=== PATIENT | female | born 1980 | race Caucasian/White ===

== ENCOUNTER 2016-08-05 07:09 | Emergency (ER) | payer OTHER ==
[~2016-08-05] VITALS: Ht 152.4 cm; Wt 50.0 kg
[~2016-08-05 07:09] MED LIST: ALBU1AER INH; ALBU6.7H INH; BUPR100CR PO; CLIN150 PO; GABA300 PO; IBUP800T23 PO; QUET100 PO
[2016-08-05 07:10] VITALS: BP 132/72; PULSE 95; RESP 18; O2SAT 98
[2016-08-05] MEDS ORDERED: methylPREDNISolone SOD SUCC 125 MG/2 ML VIAL IVP ONE (07:15)
[2016-08-05] MEDS ORDERED: SODIUM CHLORIDE 0.9% FLUSH 10 ML FLUSH IVF PRN (07:15)
[2016-08-05 07:16] VITALS: O2SAT 100
--- NOTE | 2016-08-05 07:33 | PD ---
HPI Chief Complaint: Respiratory Distress Time Seen by Provider: 07:14 Travel History International Travel<30 days: No Contact w/Intl Traveler<30days: No Traveled to known affect area: No History of Present Illness HPI 36-year-old female with history of asthma, presents to the ER today with worsening and shortness of breath and wheezing this morning. She states she has been having intermittent symptoms for about a month now especially because her seasonal allergies are acting up. She does not have anymore inhaler. She denies any fevers or any other issues. Modifying Factors: Worse with seasonal allergies Associated Signs & Symptoms: Shortness of breath, wheezing Risk Factors: Asthma PFSH Past Medical History Arthritis: No Asthma: Yes Autoimmune Disease: No Blood Disorders: No Anxiety: Yes Depression: Yes Heart Rhythm Problems: No High Cholesterol: No Chemotherapy: No Chest Pain: No Congestive Heart Failure: No COPD: No Cerebrovascular Accident: No Diminished Hearing: No Endocrine: Yes (PATIENT STATES HYPER THYROID WHILE 11 YRS AGO) Gastrointestinal Disorders: No GERD: No Glaucoma: No Genitourinary: Yes Hepatitis: No Hiatal Hernia: No Hypertension: No Immune Disorder: No Kidney Stones: No Musculoskeletal: No Neurologic: No Psychiatric: Yes (depression) Reproductive: No Respiratory: Yes Immunizations Current: Yes Myocardial Infarction: No Radiation Therapy: No Renal Failure: No Sickle Cell Disease: No Sleep Apnea: No Thyroid Disease: Yes Ulcer: No ?: Not Menopausal: No : 3 Para: 2 Miscarriage: 1 Tubal Ligation: Yes Past Surgical History Abdominal Surgery: No AICD: No Cardiac Surgery: No Section: Yes (x 2) Ear Surgery: No Endocrine Surgery: No Eye Surgery: No Genitourinary Surgery: Yes (URETHRA STRETCHED CHILDHOOD) Gynecologic Surgery: Yes (C SECTION, TUBAL) Joint Replacement: No Neurologic Surgery: No Oral Surgery: No Pacemaker: No Thoracic Surgery: No Other Surgery: Yes Social History Alcohol Use: Yes (socially) Tobacco Use: Yes (1PDD) Substance Use: No Allergies-Medications (Allergen,Severity, Reaction): Coded Allergies: Sulfa (Verified Allergy, Severe, Rash, 08/05/16) Reported Meds & Prescriptions Reported Meds & Active Scripts Active Proair Hfa (Albuterol Sulfate) 8.5 Gm Aero 2 Puff INH Q4-6H PRN * SHAKE WELL BEFORE USE * Ibuprofen 800 Mg Tab 800 Mg PO Q6H PRN Cleocin (Clindamycin HCl) 150 Mg Cap 450 Mg PO Q8HR 10 Days Quetiapine Fumarate 100 Mg Tab 100 Mg PO HS Proventil Hfa (Albuterol Sulfate) 6.7 Gm Aero 2 Puff INH Q4H PRN * SHAKE WELL BEFORE USE * Reported Neurontin (Gabapentin) 300 Mg Cap 300 Mg PO BID Wellbutrin Sr (Bupropion HCl) 100 Mg Tab 100 Mg PO Q12 Review of Systems Except as stated in HPI: all other systems reviewed are Neg Physical Exam Narrative GENERAL: Young white female patient currently and moderate respiratory distress. Awake and oriented 3. Able to speak in full sentences. SKIN: Warm and dry. HEAD: Atraumatic. Normocephalic. EYES: Pupils equal and round. No scleral icterus. No injection or drainage. ENT: No nasal bleeding or discharge. Mucous membranes pink and moist. NECK: Trachea midline. No JVD. CARDIOVASCULAR: Regular rate and rhythm. No murmur appreciated. RESPIRATORY: Mild accessory muscle use. Bilateral wheezing on evaluation. Breath sounds equal bilaterally. GASTROINTESTINAL: Abdomen soft, non-tender, nondistended. Hepatic and splenic margins not palpable. MUSCULOSKELETAL: No obvious deformities. No clubbing. No cyanosis. No edema. NEUROLOGICAL: Awake and alert. No obvious cranial nerve deficits. Motor grossly within normal limits. Normal speech. PSYCHIATRIC: Appropriate mood and affect; insight and judgment normal. Data Data Last Documented VS Vital Signs Date Time Temp Pulse Resp B/P Pulse Ox O2 Delivery O2 Flow Rate FiO2 08/05/16 08:47 93 20 121/61 97 Nasal Cannula 2 Orders Complete Blood Count With Diff (08/05/16 07:14) Comprehensive Metabolic Panel (08/05/16 07:14) Iv Access Insert/Monitor (08/05/16 07:14) Ecg Monitoring (08/05/16 07:14) Oximetry (08/05/16 07:14) Oxygen Administration (08/05/16 07:14) Sodium Chloride 0.9% Flush (Ns Flush) (08/05/16 07:15) Methylprednisolone So Succ Inj (Solumedr (08/05/16 07:15) Albuterol-Ipratropium Neb (Duoneb Neb) (08/05/16 07:15) Albuterol-Ipratropium Neb (Duoneb Neb) (08/05/16 08:30) Labs Laboratory Tests Test 08/05/16 07:30 White Blood Count 8.8 TH/MM3 Red Blood Count 4.98 MIL/MM3 Hemoglobin 15.5 GM/DL Hematocrit 46.1 % Mean Corpuscular Volume 92.5 FL Mean Corpuscular Hemoglobin 31.1 PG Mean Corpuscular Hemoglobin 33.6 % Concent Red Cell Distribution Width 13.1 % Platelet Count 372 TH/MM3 Mean Platelet Volume 9.1 FL Neutrophils (%) (Auto) 55.8 % Lymphocytes (%) (Auto) 28.9 % Monocytes (%) (Auto) 10.2 % Eosinophils (%) (Auto) 4.1 % Basophils (%) (Auto) 1.0 % Neutrophils # (Auto) 4.9 TH/MM3 Lymphocytes # (Auto) 2.5 TH/MM3 Monocytes # (Auto) 0.9 TH/MM3 Eosinophils # (Auto) 0.4 TH/MM3 Basophils # (Auto) 0.1 TH/MM3 CBC Comment DIFF FINAL Differential Comment Sodium Level 138 MEQ/L Potassium Level 4.8 MEQ/L Chloride Level 108 MEQ/L Carbon Dioxide Level 25.1 MEQ/L Anion Gap 5 MEQ/L Blood Urea Nitrogen 4 MG/DL Creatinine 0.58 MG/DL Estimat Glomerular Filtration 118 ML/MIN Rate Random Glucose 89 MG/DL Calcium Level 8.3 MG/DL Total Bilirubin 0.3 MG/DL Aspartate Amino Transf 27 U/L (AST/SGOT) Alanine Aminotransferase 18 U/L (ALT/SGPT) Alkaline Phosphatase 72 U/L Total Protein 7.0 GM/DL Albumin 3.3 GM/DL MDM Medical Decision Making Medical Screen Exam Complete: Yes Emergency Medical Condition: Yes Medical Record Reviewed: Yes Interpretation(s) Laboratory Tests Test 08/05/16 07:30 Hemoglobin 15.5 GM/DL (11.6-15.3) Hematocrit 46.1 % (35.0-46.0) Monocytes (%) (Auto) 10.2 % (0.0-8.0) Eosinophils (%) (Auto) 4.1 % (0.0-4.0) Chloride Level 108 MEQ/L (98-107) Blood Urea Nitrogen 4 MG/DL (7-18) Calcium Level 8.3 MG/DL (8.5-10.1) Albumin 3.3 GM/DL (3.4-5.0) Differential Diagnosis Shortness of breathasthma exacerbation versus pneumonia versus other acute pulmonary processes Narrative Course Patient was given Solu-Medrol and several nebulizers in the ER. On reevaluation at 9 AM, she is feeling much improved. My plan would be to release her with follow-up to primary care physician. Return for any worsening in symptoms as necessary. The plan has been discussed with her and she states understanding. Diagnosis Primary Impression: Asthma exacerbation Med/Other Pt SpecificInfo: Prescription(s) given Scripts Prednisone 50 Mg Tab50 Mg PO DAILY #5 TAB Ref 0 Prov:Mert Marrero MD 08/05/16 Albuterol 6.7 GM Inh (Proventil Hfa 6.7 GM Inh)90 Mcg/Act Aer2 Puff INH Q4-6H PRN (SHORTNESS OF BREATH) #1 INHALER Ref 0 Prov:Mert Marrero MD 08/05/16 Disposition: 01 DISCHARGE HOME Condition: Stable Mert Marrero MD Aug 05, 2016 07:33
[2016-08-05] MEDS: RESP: ALBUTEROL 2.5 MG/IPRATROPIUM 0.5 MG NEB (SCH) INH ×2 (07:58→08:36)
[2016-08-05 08:24] LABS: AUTOMATED NEUTROPHIL # 4.9 TH/MM3 (1.8-7.7); BASOPHIL # 0.1 TH/MM3 (0-0.2); EOSINOPHIL # 0.4 TH/MM3 (0-0.4); EOSINOPHIL % 4.1 % (0.0-4.0); HEMATOCRIT 46.1 % (35.0-46.0); HEMO FLAGS DIFF FINAL; LYMPH % 28.9 % (9.0-44.0); LYMPHOCYTE # 2.5 TH/MM3 (1.0-4.8); MEAN CELL VOLUME 92.5 FL (80.0-100.0); MEAN CORPUSCULAR HEMOGLOBIN 31.1 PG (27.0-34.0); MEAN CORPUSCULAR HGB CONC 33.6 % (32.0-36.0); MONO % 10.2 % (0.0-8.0); NEUT % 55.8 % (16.0-70.0); PLATELET COUNT 372 TH/MM3 (150-450); RED BLOOD COUNT 4.98 MIL/MM3 (4.00-5.30); RED CELL DISTRIBUTION WIDTH 13.1 % (11.6-17.2); WHITE BLOOD COUNT 8.8 TH/MM3 (4.0-11.0)
[2016-08-05 08:47] VITALS: BP 121/61; PULSE 93; RESP 20; O2SAT 97
[2016-08-05 08:58] LABS: ALKALINE PHOSPHATASE 72 U/L (45-117); ALT (GPT) 18 U/L (10-53); ANION GAP 5 MEQ/L (5-15); AST (GOT) 27 U/L (15-37); BICARBONATE 25.1 MEQ/L (21.0-32.0); BLOOD UREA NITROGEN 4 MG/DL (7-18); CHLORIDE 108 MEQ/L (98-107); GLOMERULAR FILTRATION RATE 118 ML/MIN (>89); SODIUM (NA) 138 MEQ/L (136-145); TOTAL BILIRUBIN ADULT 0.3 MG/DL (0.2-1.0)
[2016-08-05 09:02] LABS: POTASSIUM 4.8 MEQ/L (3.5-5.1)
[2016-08-05] MEDS ORDERED: ALBU6.7H INH (09:18)
[2016-08-05] MEDS ORDERED: PRED50 PO (09:18)
== END 2016-08-05 10:03 | disposition home or self-care (01) ==
LOC: NEPC 07:09
DX: J45.901 Unspecified asthma with (acute) exacerbation (principal); F17.210 Nicotine dependence, cigarettes, uncomplicated
CPT/HCPCS: 80053; 85025; 94640; 94664; 96374; 99284; J2930

== ENCOUNTER 2016-11-22 06:54 | Emergency (ER) | payer OTHER ==
[~2016-11-22 06:54] MED LIST changes: -ALBU1AER INH; -BUPR100CR PO; -CLIN150 PO; -GABA300 PO; -IBUP800T23 PO; +PRED50 PO; -QUET100 PO
[2016-11-22 06:58] VITALS: BP 109/61; PULSE 110; RESP 15; TEMP 97.9; O2SAT 93
[2016-11-22] MEDS ORDERED: SERO100T PO (07:21)
[2016-11-22] MEDS ORDERED: BUPR100CR PO (07:21)
--- NOTE | 2016-11-22 07:25 | PD ---
HPI Chief Complaint: Flank/Kidney Pain Time Seen by Provider: 07:16 Travel History International Travel<30 days: No Contact w/Intl Traveler<30days: No Traveled to known affect area: No History of Present Illness HPI The patient was seen and examined in the presence of the nurse. She complains of pain in the right low back. Duration 20 hours. Severity is moderate. No injury or fever or urinary complaints. There is no sciatic radiation. No muscle weakness or sensory loss. No alleviating factors. She has had this multiple times in the past without evaluation PFSH Past Medical History Arthritis: No Asthma: Yes Autoimmune Disease: No Blood Disorders: No Anxiety: Yes Depression: Yes Heart Rhythm Problems: No High Cholesterol: No Chemotherapy: No Chest Pain: No Congestive Heart Failure: No COPD: No Cerebrovascular Accident: No Diminished Hearing: No Endocrine: Yes (PATIENT STATES HYPER THYROID WHILE ) Gastrointestinal Disorders: No GERD: No Glaucoma: No Genitourinary: Yes Hepatitis: No Hiatal Hernia: No Hypertension: No Immune Disorder: No Kidney Stones: No Musculoskeletal: No Neurologic: No Psychiatric: Yes (depression) Reproductive: No Respiratory: Yes Immunizations Current: Yes Myocardial Infarction: No Radiation Therapy: No Renal Failure: No Sickle Cell Disease: No Sleep Apnea: No Thyroid Disease: Yes Ulcer: No Tetanus Vaccination: > 5 Years Influenza Vaccination: No ?: Not LMP: 11/09/16 Menopausal: No : 3 Para: 2 Miscarriage: 1 : 0 Tubal Ligation: Yes Past Surgical History Abdominal Surgery: No AICD: No Cardiac Surgery: No Section: Yes (x 2) Ear Surgery: No Endocrine Surgery: No Eye Surgery: No Genitourinary Surgery: Yes (URETHRA STRETCHED CHILDHOOD) Gynecologic Surgery: Yes (C SECTION, TUBAL) Joint Replacement: No Neurologic Surgery: No Oral Surgery: No Pacemaker: No Thoracic Surgery: No Other Surgery: Yes Social History Alcohol Use: Yes (socially) Tobacco Use: Yes (1PDD) Substance Use: No Allergies-Medications (Allergen,Severity, Reaction): Coded Allergies: Sulfa (Verified Allergy, Severe, Rash, 11/22/16) Reported Meds & Prescriptions Reported Meds & Active Scripts Active Proventil Hfa 6.7 GM Inh (Albuterol Sulfate) 90 Mcg/Act Aer 2 Puff INH Q4-6H PRN Reported Wellbutrin SR 12 HR (Bupropion HCl) 100 Mg Tab 100 Mg PO Q12HR Seroquel (Quetiapine Fumarate) 100 Mg Tab 100 Mg PO HS Review of Systems General / Constitutional: No: Fever Eyes: No: Visual changes HENT: No: Headaches Cardiovascular: No: Chest Pain or Discomfort Respiratory: No: Shortness of Breath Gastrointestinal: No: Abdominal Pain Genitourinary: Positive: Flank Pain, No: Dysuria Musculoskeletal: Positive: Pain Skin: No Rash Neurologic: No: Weakness Psychiatric: No: Depression Endocrine: No: Polydipsia Hematologic/Lymphatic: No: Easy Bruising Physical Exam Narrative GENERAL: Well-nourished, well-developed patient in no apparent distress. SKIN: Focused skin assessment reveals no rash and nodules. Skin is Warm and dry. HEAD: Atraumatic. Normocephalic. EYES: Pupils equal and round. No scleral icterus. No injection or drainage. ENT: No nasal bleeding or discharge. Mucous membranes pink and moist. NECK: Trachea midline. No JVD. CARDIOVASCULAR: Regular rate and rhythm. No murmur appreciated. RESPIRATORY: No accessory muscle use. Clear to auscultation. Breath sounds equal bilaterally. GASTROINTESTINAL: Abdomen soft, non-tender, nondistended. Hepatic and splenic margins not palpable. MUSCULOSKELETAL: No obvious deformities. No clubbing. No cyanosis. No edema. No midline tenderness to the back. There is right lumbar area tenderness without objective finding NEUROLOGICAL: Awake and alert. No obvious cranial nerve deficits. Motor grossly within normal limits. Normal speech. PSYCHIATRIC: Appropriate mood and affect; insight and judgment normal. Data Data Last Documented VS Vital Signs Date Time Temp Pulse Resp B/P Pulse Ox O2 Delivery O2 Flow Rate FiO2 11/22/16 09:04 97.7 77 18 101/50 97 Room Air Orders Urinalysis - C+S If Indicated (11/22/16 07:22) Urine Culture (11/22/16 07:25) Labs Laboratory Tests Test 11/22/16 07:25 Urine Color YELLOW Urine Turbidity CLOUDY Urine pH 6.5 Urine Specific [place] 1.016 Urine Protein 30 mg/dL Urine Glucose (UA) NEG mg/dL Urine Ketones NEG mg/dL Urine Occult Blood LARGE Urine Nitrite POS Urine Bilirubin NEG Urine Urobilinogen LESS THAN 2.0 MG/DL Urine Leukocyte Esterase LARGE Urine RBC 128 /hpf Urine WBC 73 /hpf Urine WBC Clumps MOD Urine Squamous Epithelial 12 /hpf Cells Urine Bacteria FEW /hpf Urine Mucus FEW /lpf Microscopic Urinalysis Comment CULTURE INDICATED MDM Medical Decision Making Medical Screen Exam Complete: Yes Emergency Medical Condition: Yes Medical Record Reviewed: Yes Differential Diagnosis Lumbar strain, sciatica, pyelonephritis Narrative Course I have reviewed the patient's electronic medical record. Patient's a frequent visitor for asthma exacerbations Urinalysis is consistent with infection with pyuria and hematuria and clumps of white cells Cipro prescribed Diagnosis Primary Impression: Pyelonephritis Additional Instructions: The patient was advised to follow up with their physician and return if they worsen. Med/Other Pt SpecificInfo: Prescription(s) given Scripts Ciprofloxacin (Cipro)500 Mg Opl286 Mg PO BID #10 TAB Ref 0 Prov:Roger Lomeli MD 11/22/16 Disposition: 01 DISCHARGE HOME Condition: Stable Roger Lomeli MD Nov 22, 2016 07:25
[2016-11-22 08:11] LABS: BACTERIA, URINE FEW /hpf; BLOOD, URINE LARGE (NEG); COMMENT (UR) CULTURE INDICATED; CULTURE IF INDICATED CULTURE INDICATED; GLUCOSE,URINE NEG (NEG); KETONE, URINE NEG (NEG); MUCUS URINE FEW /lpf (OCC); PH, URINE 6.5 (5.0-8.5); SQUAMOUS EPITHELIAL CELL URINE 12 /hpf (0-5); URINE COLOR YELLOW (YELLW/STRAW)
[2016-11-22 08:13] LABS: NITRITE,URINE POS (NEG)
[2016-11-22 09:04] VITALS: BP 101/50; PULSE 77; RESP 18; TEMP 97.7; O2SAT 97
[2016-11-22] MEDS ORDERED: CIPR-9 PO (09:49)
== END 2016-11-22 10:10 | disposition home or self-care (01) ==
LOC: NEPC 06:54
DX: N12 Tubulo-interstitial nephritis, not specified as acute or chronic (principal); J45.909 Unspecified asthma, uncomplicated; F41.9 Anxiety disorder, unspecified; F32.9 Major depressive disorder, single episode, unspecified; F17.200 Nicotine dependence, unspecified, uncomplicated; Z79.899 Other long term (current) drug therapy; Z88.2 Allergy status to sulfonamides
CPT/HCPCS: 81001; 87086; 99283

== ENCOUNTER 2016-12-11 14:39 | Inpatient (IN) | payer OTHER ==
[~2016-12-11] VITALS: Ht 152.4 cm; Wt 44.4 kg
[~2016-12-11 14:39] MED LIST changes: +BUPR100CR PO; +CIPR-9 PO; -PRED50 PO; +SERO100T PO
[2016-12-11 14:40] VITALS: BP 103/67; PULSE 98; RESP 22; TEMP 100.9; O2SAT 100
--- NOTE | 2016-12-11 15:29 | PD ---
HPI Chief Complaint: Flank/Kidney Pain Time Seen by Provider: 15:29 Travel History International Travel<30 days: No Contact w/Intl Traveler<30days: No Traveled to known affect area: No History of Present Illness HPI 36 YO F with PMH of asthma, depression and anxiety presents to the ED for evaluation of 2 week history of dysuria, right flank and back pain. Also complains of fevers, nausea and malaise. Endorses vaginal discharge. Denies changes in bowel habits, melena, hematochezia. She was seen in the ED last week , provided Cipro for pyelonephritis. She endorses compliance with the medication. PFSH Past Medical History Arthritis: No Asthma: Yes Autoimmune Disease: No Blood Disorders: No Anxiety: Yes Depression: Yes Heart Rhythm Problems: No High Cholesterol: No Chemotherapy: No Chest Pain: No Congestive Heart Failure: No COPD: No Cerebrovascular Accident: No Diminished Hearing: No Endocrine: Yes (PATIENT STATES HYPER THYROID WHILE ) Gastrointestinal Disorders: No GERD: No Glaucoma: No Genitourinary: Yes Hepatitis: No Hiatal Hernia: No Hypertension: No Immune Disorder: No Kidney Stones: No Musculoskeletal: No Neurologic: No Psychiatric: Yes (depression) Reproductive: No Respiratory: Yes Immunizations Current: Yes Myocardial Infarction: No Radiation Therapy: No Renal Failure: No Sickle Cell Disease: No Sleep Apnea: No Thyroid Disease: Yes Ulcer: No ?: Not Menopausal: No : 3 Para: 2 Miscarriage: 1 : 0 Tubal Ligation: Yes Past Surgical History Abdominal Surgery: No AICD: No Cardiac Surgery: No Section: Yes (x 2) Ear Surgery: No Endocrine Surgery: No Eye Surgery: No Genitourinary Surgery: Yes (URETHRA STRETCHED CHILDHOOD) Gynecologic Surgery: Yes (C SECTION, TUBAL) Joint Replacement: No Neurologic Surgery: No Oral Surgery: No Pacemaker: No Thoracic Surgery: No Other Surgery: Yes Social History Alcohol Use: Yes (socially) Tobacco Use: Yes (1PDD) Substance Use: No Allergies-Medications (Allergen,Severity, Reaction): Coded Allergies: Sulfa (Verified Allergy, Severe, Rash, 11/22/16) Reported Meds & Prescriptions Reported Meds & Active Scripts Active Cipro (Ciprofloxacin HCl) 500 Mg Tab 500 Mg PO BID Proventil Hfa 6.7 GM Inh (Albuterol Sulfate) 90 Mcg/Act Aer 2 Puff INH Q4-6H PRN Reported Wellbutrin SR 12 HR (Bupropion HCl) 100 Mg Tab 100 Mg PO Q12HR Seroquel (Quetiapine Fumarate) 100 Mg Tab 100 Mg PO HS Review of Systems Except as stated in HPI: all other systems reviewed are Neg Physical Exam Narrative GENERAL: Well-nourished, well-developed petite, ill-appearing white female in no acute distress. SKIN: Focused skin assessment warm/dry. HEAD: Normocephalic. EYES: No scleral icterus. No injection or drainage. NECK: Supple, trachea midline. No JVD or lymphadenopathy. CARDIOVASCULAR: Regular rate and rhythm without murmurs, gallops, or rubs. RESPIRATORY: Breath sounds clear and equal bilaterally. No accessory muscle use. GASTROINTESTINAL: Abdomen soft, nondistended. Tender to palpation in the suprapubic area, bilateral lower quadrants, right greater than left. Active bowel sounds. MUSCULOSKELETAL: No cyanosis, or edema. GENITOURINARY: Normal external genitalia without lesions or erythema. Vaginal vault small amount of dark blood. Cervical os was closed small amount dark blood. No cervical motion tenderness. Uterus nontender and nonenlarged. Right adnexa tender. BACK: Nontender without obvious deformity. No CVA tenderness. Data Data Last Documented VS Vital Signs Date Time Temp Pulse Resp B/P Pulse Ox O2 Delivery O2 Flow Rate FiO2 12/11/16 14:40 100.9 98 22 103/67 100 Orders Urinalysis - C+S If Indicated (12/11/16 15:02) Complete Blood Count With Diff (12/11/16 15:02) Basic Metabolic Panel (Bmp) (12/11/16 15:02) Lactic Acid (12/11/16 15:02) Blood Culture (12/11/16 15:02) Ed Urine Pregnancytest Poc (12/11/16 15:18) Iv Access Insert/Monitor (12/11/16 15:34) Ecg Monitoring (12/11/16 15:34) Oximetry (12/11/16 15:34) Ondansetron Inj (Zofran Inj) (12/11/16 15:45) Sodium Chlor 0.9% 1000 Ml Inj (Ns 1000 M (12/11/16 15:34) Morphine Inj (Morphine Inj) (12/11/16 15:45) Acetaminophen (Tylenol) (12/11/16 16:00) Gc And Chlamydia Pcr (12/11/16 15:47) Wet Prep Profile (12/11/16 15:47) Sodium Chlor 0.9% 1000 Ml Inj (Ns 1000 M (12/11/16 16:15) Ct Abd/Pel W/O Iv Contrast (12/11/16 16:12) Urine Culture (12/11/16 14:55) Ceftriaxone Inj (Rocephin Inj) (12/11/16 16:30) Admit Order (Ed Use Only) (12/11/16 16:29) Labs Laboratory Tests Test 12/11/16 12/11/16 14:55 15:00 Urine Color YELLOW Urine Turbidity HAZY Urine pH 7.0 Urine Specific [place] 1.015 Urine Protein 30 mg/dL Urine Glucose (UA) NEG mg/dL Urine Ketones NEG mg/dL Urine Occult Blood MOD Urine Nitrite NEG Urine Bilirubin NEG Urine Urobilinogen LESS THAN 2.0 MG/DL Urine Leukocyte Esterase LARGE Urine RBC /hpf Urine WBC 62 /hpf Urine Squamous Epithelial 1 /hpf Cells Urine Bacteria FEW /hpf Urine Mucus FEW /lpf Microscopic Urinalysis Comment CULTURE INDICATED White Blood Count 17.6 TH/MM3 Red Blood Count 4.29 MIL/MM3 Hemoglobin 13.2 GM/DL Hematocrit 39.4 % Mean Corpuscular Volume 91.9 FL Mean Corpuscular Hemoglobin 30.7 PG Mean Corpuscular Hemoglobin 33.4 % Concent Red Cell Distribution Width 12.9 % Platelet Count 340 TH/MM3 Mean Platelet Volume 8.9 FL Neutrophils (%) (Auto) 80.0 % Lymphocytes (%) (Auto) 9.3 % Monocytes (%) (Auto) 9.7 % Eosinophils (%) (Auto) 0.1 % Basophils (%) (Auto) 0.9 % Neutrophils # (Auto) 14.1 TH/MM3 Lymphocytes # (Auto) 1.6 TH/MM3 Monocytes # (Auto) 1.7 TH/MM3 Eosinophils # (Auto) 0.0 TH/MM3 Basophils # (Auto) 0.2 TH/MM3 CBC Comment DIFF FINAL Differential Comment Sodium Level 134 MEQ/L Potassium Level 3.3 MEQ/L Chloride Level 102 MEQ/L Carbon Dioxide Level 22.3 MEQ/L Anion Gap 10 MEQ/L Blood Urea Nitrogen 5 MG/DL Creatinine 0.61 MG/DL Estimat Glomerular Filtration 111 ML/MIN Rate Random Glucose 95 MG/DL Lactic Acid Level 2.6 mmol/L Calcium Level 9.0 MG/DL [facility] Medical Decision Making Medical Screen Exam Complete: Yes Emergency Medical Condition: Yes Differential Diagnosis Pyelonephritis versus nephroureterolithiasis versus outpatient failure versus urosepsis versus other Narrative Course 36 YO F with PMH of asthma, depression and anxiety presents to the ED for evaluation of 2 week history of dysuria, right flank and back pain. Also complains of fevers, nausea and malaise. Took a course of Cipro outpatient with no improvement in symptoms. On presentation the patient is tachycardic, febrile, ill-appearing. Positive suprapubic, right abdominal, flank and right CVA tenderness. IV was established. She was administered 2 L normal saline, 4 mg morphine and 4 mg Zofran IV. Blood cultures were obtained. Rocephin was initiated. Leukocytosis of 17.6, neutrophil predominant. Lactic acid 2.6. UA hazy, large leukocyte esterase, 62 WBCs. Urine culture pending. Noncontrast CT abdomen and pelvis pending. CT report reveals a 10 mm x 7 mm distal ureter stone with mild hydronephrosis. Consult placed with Dr. Jackson, urology, who agrees to consult on the patient. I discussed the workup with the patient as well as the plan to admit. She is agreeable. I spoke with Dr. Guzman who agrees to accept the patient to the medicine service. Please see medicine for disposition. Sepsis Criteria SIRS Criteria (2 or more): Temp > 100.9 or < 96.8, Heart rate over 90, WBC > 48372, < 4000 or > 10% bands Severe Sepsis (+one): Lactate >2 Criteria Outcome: Meets severe sepsis criteria Monie Hussein Dec 11, 2016 15:29
[2016-12-11] MEDS ORDERED: SODIUM CHLOR 0.9% 1000 ML INJ 1,000 ML IV SCH (15:34)
[2016-12-11] MEDS ORDERED: ONDANSETRON HCL 4 MG/2 ML VIAL IVP ONE (15:45)
[2016-12-11] MEDS ORDERED: MORPHINE SULFATE 4 MG/ML INJ IV PUSH ONE (15:45)
[2016-12-11 15:58] LABS: AUTOMATED NEUTROPHIL # 14.1 TH/MM3 (1.8-7.7); BASOPHIL # 0.2 TH/MM3 (0-0.2); BASOPHIL % 0.9 % (0.0-2.0); EOSINOPHIL % 0.1 % (0.0-4.0); HEMATOCRIT 39.4 % (35.0-46.0); HEMO FLAGS DIFF FINAL; LYMPH % 9.3 % (9.0-44.0); LYMPHOCYTE # 1.6 TH/MM3 (1.0-4.8); MEAN CELL VOLUME 91.9 FL (80.0-100.0); MEAN CORPUSCULAR HEMOGLOBIN 30.7 PG (27.0-34.0); MEAN CORPUSCULAR HGB CONC 33.4 % (32.0-36.0); MONO % 9.7 % (0.0-8.0); PLATELET COUNT 340 TH/MM3 (150-450); RED BLOOD COUNT 4.29 MIL/MM3 (4.00-5.30); RED CELL DISTRIBUTION WIDTH 12.9 % (11.6-17.2); WHITE BLOOD COUNT 17.6 TH/MM3 (4.0-11.0)
[2016-12-11] MEDS ORDERED: ACETAMINOPHEN 325 MG TAB PO ONE (16:00)
[2016-12-11 16:12] LABS: BACTERIA, URINE FEW /hpf; BLOOD, URINE MOD (NEG); COMMENT (UR) CULTURE INDICATED; CULTURE IF INDICATED CULTURE INDICATED; GLUCOSE,URINE NEG (NEG); KETONE, URINE NEG (NEG); MUCUS URINE FEW /lpf (OCC); NITRITE,URINE NEG (NEG); SQUAMOUS EPITHELIAL CELL URINE 1 /hpf (0-5); URINE COLOR YELLOW (YELLW/STRAW)
[2016-12-11] MEDS ORDERED: SODIUM CHLOR 0.9% 1000 ML INJ 1,000 ML IV ONE (16:15)
[2016-12-11 16:22] LABS: BICARBONATE 22.3 MEQ/L (21.0-32.0); POTASSIUM 3.3 MEQ/L (3.5-5.1)
[2016-12-11] MEDS ORDERED: cefTRIAXone INJ 1,000 MG in SODIUM CHLORIDE 0.9% INJ 100 ML IV ONE (16:30)
--- NOTE | 2016-12-11 17:07 | PD ---
Data Data Last Documented VS Vital Signs Date Time Temp Pulse Resp B/P Pulse Ox O2 Delivery O2 Flow Rate FiO2 12/11/16 14:40 100.9 98 22 103/67 100 Orders Urinalysis - C+S If Indicated (12/11/16 15:02) Complete Blood Count With Diff (12/11/16 15:02) Basic Metabolic Panel (Bmp) (12/11/16 15:02) Lactic Acid (12/11/16 15:02) Blood Culture (12/11/16 15:02) Ed Urine Pregnancytest Poc (12/11/16 15:18) Iv Access Insert/Monitor (12/11/16 15:34) Ecg Monitoring (12/11/16 15:34) Oximetry (12/11/16 15:34) Ondansetron Inj (Zofran Inj) (12/11/16 15:45) Sodium Chlor 0.9% 1000 Ml Inj (Ns 1000 M (12/11/16 15:34) Morphine Inj (Morphine Inj) (12/11/16 15:45) Acetaminophen (Tylenol) (12/11/16 16:00) Gc And Chlamydia Pcr (12/11/16 15:47) Wet Prep Profile (12/11/16 15:47) Sodium Chlor 0.9% 1000 Ml Inj (Ns 1000 M (12/11/16 16:15) Ct Abd/Pel W/O Iv Contrast (12/11/16 16:12) Urine Culture (12/11/16 14:55) Ceftriaxone Inj (Rocephin Inj) (12/11/16 16:30) Admit Order (Ed Use Only) (12/11/16 16:29) Labs Laboratory Tests Test 12/11/16 12/11/16 14:55 15:00 Urine Color YELLOW Urine Turbidity HAZY Urine pH 7.0 Urine Specific [place] 1.015 Urine Protein 30 mg/dL Urine Glucose (UA) NEG mg/dL Urine Ketones NEG mg/dL Urine Occult Blood MOD Urine Nitrite NEG Urine Bilirubin NEG Urine Urobilinogen LESS THAN 2.0 MG/DL Urine Leukocyte Esterase LARGE Urine RBC /hpf Urine WBC 62 /hpf Urine Squamous Epithelial 1 /hpf Cells Urine Bacteria FEW /hpf Urine Mucus FEW /lpf Microscopic Urinalysis Comment CULTURE INDICATED White Blood Count 17.6 TH/MM3 Red Blood Count 4.29 MIL/MM3 Hemoglobin 13.2 GM/DL Hematocrit 39.4 % Mean Corpuscular Volume 91.9 FL Mean Corpuscular Hemoglobin 30.7 PG Mean Corpuscular Hemoglobin 33.4 % Concent Red Cell Distribution Width 12.9 % Platelet Count 340 TH/MM3 Mean Platelet Volume 8.9 FL Neutrophils (%) (Auto) 80.0 % Lymphocytes (%) (Auto) 9.3 % Monocytes (%) (Auto) 9.7 % Eosinophils (%) (Auto) 0.1 % Basophils (%) (Auto) 0.9 % Neutrophils # (Auto) 14.1 TH/MM3 Lymphocytes # (Auto) 1.6 TH/MM3 Monocytes # (Auto) 1.7 TH/MM3 Eosinophils # (Auto) 0.0 TH/MM3 Basophils # (Auto) 0.2 TH/MM3 CBC Comment DIFF FINAL Differential Comment Sodium Level 134 MEQ/L Potassium Level 3.3 MEQ/L Chloride Level 102 MEQ/L Carbon Dioxide Level 22.3 MEQ/L Anion Gap 10 MEQ/L Blood Urea Nitrogen 5 MG/DL Creatinine 0.61 MG/DL Estimat Glomerular Filtration 111 ML/MIN Rate Random Glucose 95 MG/DL Lactic Acid Level 2.6 mmol/L Calcium Level 9.0 MG/DL MDM Supervised Visit with JENS: Yes Narrative Course The history, exam, and medical decision-making in the associated midlevel provider note were completed with my assistance. I reviewed and agree with the findings presented. I attest that I had a [id number] encounter with the patient on the same day, and personally performed and documented my assessment and findings in the medical record. *My assessment and Findings: This is a 36-year-old female who presents to the emergency department with signs and symptoms classic for pyelonephritis. She does have a significant amount of pain. Labs and urinalysis confirm pyelonephritis. CT will be obtained to rule out stone. She was given a dose of IV ceftriaxone. She completed a course of ciprofloxacin at home. She'll be admitted for failed outpatient therapy. Jane Garcia MD Dec 11, 2016 17:07
[2016-12-11] MEDS ORDERED: ONDANSETRON HCL 4 MG/2 ML VIAL IV PUSH PRN (17:15)
[2016-12-11] MEDS ORDERED: ACETAMINOPHEN 325 MG TAB PO PRN (17:15)
--- NOTE | 2016-12-11 17:16 | HHI.HP ---
[facility] No Primary Care Physician Admission Diagnosis pyelonephritis, sepsis Diagnoses: (1) Pyelonephritis Diagnosis: Principal (2) Severe sepsis Diagnosis: Principal Chief Complaint: flank pain Travel History International Travel<30 Days: No Contact w/Intl Traveler <30 Da: No Traveled to Known Affected Are: No Sepsis Criteria SIRS Criteria (2 or more): Heart rate over 90, WBC > 52219, < 4000 or > 10% bands Sepsis Criteria (SIRS+source): Infect source susp/known Severe Sepsis (+one): Lactate >2 Criteria Outcome: Meets severe sepsis criteria History of Present Illness patient is a 36 y/o female with history of depression who presented to ER with flank pain. she says that she started to have flank pain along with dysuria and urinary frequency about two weeks ago. she was seen in ER and was discharged home with danielle Ji. she says that she initially felt better however the symptoms started to get worse again few days ago. she reports some nausea, fever and chills. she's complaining of flank pain which is bilateral and moderate to severe in intensity. pain has some radiation to the periumbilical area. Review of Systems Constitutional: COMPLAINS OF: Fever, DENIES: Weight loss, Chills, Night Sweats Eyes: DENIES: Blurred vision, Diplopia, Vision loss, Double Vision Ears, nose, mouth, throat: DENIES: Tinnitus, Vertigo, Throat pain, Epistaxis Respiratory: DENIES: Apneas, Cough, Snoring, Wheezing, Hemoptysis, Sputum production, Shortness of breath Cardiovascular: DENIES: Chest pain, Palpitations, Syncope, Dyspnea on Exertion , PND, Lower Extremity Edema, Orthopnea, Claudication Gastrointestinal: COMPLAINS OF: Abdominal pain, Nausea, DENIES: Black stools, Bloody stools, Constipation, Diarrhea, Vomiting, Difficulty Swallowing, Anorexia Genitourinary: COMPLAINS OF: Urinary frequency, Dysuria, DENIES: Urgency, Hematuria Musculoskeletal: DENIES: Joint pain, Muscle aches, Stiffness, Joint Swelling Integumentary: DENIES: Rash Neurologic: DENIES: Abnormal gait, Headache, Localized weakness, Paresthesias, Seizures, Speech Problems, Tremor, Poor Balance Psychiatric: DENIES: Anxiety, Confusion, Mood changes, Depression, Hallucinations, Agitation, Suicidal Ideation, Homicidal Ideation, Delusions Past Family Social History Past Medical History depression Past Surgical History Reported Medications Wellbutrin Seroquel Allergies: Coded Allergies: Sulfa (Verified Allergy, Severe, Rash, 11/22/16) Active Ordered Medications Current Medications Ondansetron HCl 4 mg 4 mg ONCE ONCE IVP Last administered on 12/11/16 16:18; Start 12/11/16 at 15:45; Stop 12/11/16 at 15:46; Status DC Sodium Chloride (NS 1000 ml Inj) 1,000 ml @ 1,000 mls/hr Q1H IV Last administered on 12/11/16 16:17; Start 12/11/16 at 15:34; Stop 12/11/16 at 16:33; Status DC Morphine Sulfate (Morphine Inj) 2.5 mg ONCE ONCE IV PUSH Last administered on 12/11/16 16:18; Start 12/11/16 at 15:45; Stop 12/11/16 at 15:46; Status DC Acetaminophen 650 mg 650 mg ONCE ONCE PO Last administered on 12/11/16 16:19; Start 12/11/16 at 16:00; Stop 12/11/16 at 16:01; Status DC Sodium Chloride 1,000 ml @ 999 mls/hr BOLUS ONCE IV Last administered on 16:27; Start 12/11/16 at 16:15; Stop 12/11/16 at 17:15 Ceftriaxone Sodium/Sodium Chloride (Rocephin Inj/NS Inj) 100 ml @ 200 mls/hr ONCE ONCE IV Last administered on 12/11/16 16:45; Start 12/11/16 at 16:30; Stop 12/11/16 at 16:59; Status DC Family History possible kidney stone. Social History smokes a pack a day- doesn't drink. no illicit drug abuse. Physical Exam Vital Signs Vital Signs Date Time Temp Pulse Resp B/P Pulse Ox O2 Delivery O2 Flow Rate FiO2 12/11/16 14:40 100.9 98 22 103/67 100 Physical Exam GENERAL: This is a well-nourished, well-developed patient, in no apparent distress. SKIN: No rashes, ecchymoses or lesions. Cool and dry. HEAD: Atraumatic. Normocephalic. No temporal or scalp tenderness. EYES: Pupils equal round and reactive. Extraocular motions intact. No scleral icterus. No injection or drainage. ENT: Nose without bleeding, purulent drainage or septal hematoma. Throat without erythema, tonsillar hypertrophy or exudate. Uvula midline. Airway patent. NECK: Trachea midline. No JVD or lymphadenopathy. Supple, nontender, no meningeal signs. CARDIOVASCULAR: Regular rate and rhythm without murmurs, gallops, or rubs. RESPIRATORY: Clear to auscultation. Breath sounds equal bilaterally. No wheezes , rales, or rhonchi. GASTROINTESTINAL: Abdomen soft, bilateral flank tenderness, nondistended. No hepato-splenomegaly, or palpable masses. No guarding. MUSCULOSKELETAL: Extremities without clubbing, cyanosis, or edema. No joint tenderness, effusion, or edema noted. No calf tenderness. Negative Homans sign bilaterally. NEUROLOGICAL: Awake and alert. Cranial nerves II through XII intact. Motor and sensory grossly within normal limits. Five out of 5 muscle strength in all muscle groups. Normal speech. Laboratory Laboratory Tests Test 12/11/16 12/11/16 14:55 15:00 Urine Color YELLOW Urine Turbidity HAZY Urine pH 7.0 Urine Specific Robert 1.015 Urine Protein 30 Urine Glucose (UA) NEG Urine Ketones NEG Urine Occult Blood MOD Urine Nitrite NEG Urine Bilirubin NEG Urine Urobilinogen LESS THAN 2.0 Urine Leukocyte Esterase LARGE Urine RBC Urine WBC 62 Urine Squamous Epithelial 1 Cells Urine Bacteria FEW Urine Mucus FEW Microscopic Urinalysis Comment CULTURE INDICATED White Blood Count 17.6 Red Blood Count 4.29 Hemoglobin 13.2 Hematocrit 39.4 Mean Corpuscular Volume 91.9 Mean Corpuscular Hemoglobin 30.7 Mean Corpuscular Hemoglobin 33.4 Concent Red Cell Distribution Width 12.9 Platelet Count 340 Mean Platelet Volume 8.9 Neutrophils (%) (Auto) 80.0 Lymphocytes (%) (Auto) 9.3 Monocytes (%) (Auto) 9.7 Eosinophils (%) (Auto) 0.1 Basophils (%) (Auto) 0.9 Neutrophils # (Auto) 14.1 Lymphocytes # (Auto) 1.6 Monocytes # (Auto) 1.7 Eosinophils # (Auto) 0.0 Basophils # (Auto) 0.2 CBC Comment DIFF FINAL Differential Comment Sodium Level 134 Potassium Level 3.3 Chloride Level 102 Carbon Dioxide Level 22.3 Anion Gap 10 Blood Urea Nitrogen 5 Creatinine 0.61 Estimat Glomerular Filtration 111 Rate Random Glucose 95 Lactic Acid Level 2.6 Calcium Level 9.0 Date/Time Procedure Status Source Growth 12/11/16 15:00 Aerobic Blood Culture Received Blood Peripheral Pending 12/11/16 15:00 Anaerobic Blood Culture Received Blood Peripheral Pending 12/11/16 14:55 Urine Culture Received Urine Clean Catch Pending Result Diagram: 12/11/16 1500 12/11/16 1500 Assessment and Plan Assessment and Plan A/P - severe sepsis due to pyelonephritis- patient was treated with PO Cipro as outpatient with no improvement. continue with IV antibiotic- follow the cultures- CT of the abdomen. continue with pain control. -hypokalemia; will replace. -depression; resume home meds -DVT prophylaxis; early ambulation Discussed Condition With ER and the patient. Physician Certification 2 Midnight Certification Type: Admission for Inpatient Services Order for Inpatient Services The services are ordered in accordance with Medicare regulations or non- Medicare payer requirements, as applicable. In the case of services not specified as inpatient-only, they are appropriately provided as inpatient services in accordance with the 2-midnight benchmark. Estimated LOS (days): 2 days is the estimated time the patient will need to remain in the hospital, assuming treatment plan goals are met and no additional complications. Post-Hospital Plan: Home Scott Guzman MD Dec 11, 2016 17:16
--- NOTE | 2016-12-11 17:25 | RADRPT ---
EXAM DATE/TIME: 12/11/2016 17:06 [facility] COMPARISON: No previous studies available for comparison. INDICATIONS : Patient complains of bilateral flank pain, dysuria. ORAL CONTRAST: No oral contrast ingested. RADIATION DOSE: 13.28 CTDIvol (mGy) MEDICAL HISTORY : None SURGICAL HISTORY : section. Tubal ligation. ENCOUNTER: Initial ACUITY: 1 day PAIN SCALE: 5/10 LOCATION: Bilateral flank TECHNIQUE: Volumetric scanning of the abdomen and pelvis was performed. Using automated exposure control and ad justment of the mA and/or kV according to patient size, radiation dose was kept as low as reasonably achievable to obtain optimal diagnostic quality images. DICOM format image data is available electro nically for review and comparison. FINDINGS: Lung bases are clear. No focal abnormality in the liver, spleen, adrenals or pancreas. There is nephr ocalcinosis bilaterally, worse on the right side with numerous right-sided renal calculi ranging in s ize from 1-5 mm. There is a mild right-sided hydronephrosis and ureteral dilatation characteristic of an obstructive uropathy. There is a large 10 mm x 7 mm calculus in the distal right ureter as it crosses the external iliac ar teries. No bladder calculi. No left hydronephrosis or obstructive uropathy. No acute bony abnormaliti es. No pelvic mass or free fluid. CONCLUSION: 1. Right-sided obstructive uropathy with a large 10 mm x 7 mm calculus in the distal right ureter as above. Mild right hydronephrosis. 2. Bilateral medullary nephrocalcinosis with numerous nonobstructing calculi predominantly in the rig ht kidney. Raudel Dobbs MD on December 11, 2016 at 17:19 Board Certified Radiologist. This report was verified electronically.
[2016-12-11] MEDS ORDERED: POTASSIUM CHLORIDE 20 MEQ CONTROLLED RELEASE TAB PO ONE (18:30)
[2016-12-11 20:00] VITALS: BP 96/53; PULSE 90; RESP 18; TEMP 98.8; O2SAT 96
[2016-12-11] MEDS ORDERED: ALBUTEROL SULFATE 90 MCG/ACT HFA 8 GM INHALER INH PRN (20:00)
--- NOTE | 2016-12-11 20:10 | MB ---
cc: JOSE R MORENO MD DATE OF CONSULTATION 12/11/2016 CHIEF COMPLAINT 1. Right distal ureteral stone with hydronephrosis 2. Right flank pain 3. Right non-obstructing stone. 4. Urinary tract infection HISTORY OF PRESENT ILLNESS This patient is a 36-year-old female who presented to the ER with flank pain that recently started approximately two weeks ago. She came to the [facility] ER two weeks ago with complaints of dysuria, urinary frequency and flank pain. She was diagnosed with urinary tract infection and sent home with Cipro. However, over the course of the next two weeks her pain has progressively worsened to a 10/10 along with fever, chills and nausea. She came to the ER earlier this afternoon where a CT stone protocol was performed which showed a large 9 mm stone in her distal right ureter causing mild hydronephrosis as well as several small right non-obstructing stones and elevated white count of 17,000. She was subsequently admitted and urology was consulted. She states she denies any prior known knowledge of kidney stones in the past. She denies hematuria but continues to feel generally weak and fatigue and subjective chills. REVIEW OF SYSTEMS See HPI otherwise a 14-point review of systems was done and otherwise negative. PAST MEDICAL HISTORY 1. Depression 2. Urinary tract infection. PAST SURGICAL HISTORY MEDICATIONS Home medications 1. Wellbutrin 2. Seroquel ALLERGIES [facility] FAMILY HISTORY Denies urolithiasis or genitourinary malignancies. SOCIAL HISTORY Smokes a pack per day. Denies illicit drug or alcohol use. PHYSICAL EXAMINATION VITAL SIGNS: Temperature 100.9, pulse 80, respiratory 22, BP 102/67. Satting 100% on room air. GENERAL: She is a well-nourished, well-developed patient in no apparent distress. SKIN: No rashes or ulcers visible. Cool and dry. HEAD: Atraumatic, normocephalic. No temporal scalp tenderness. EYES: Pupils equal, round, reactive to light. Extraocular muscles intact. No scleral icterus. ENT: Nose without bleeding. Apparent drainage of septal hematoma. Throat without any erythema or exudate. Uvula was midline. Airway is patent. Trachea is midline. No JVD or adenopathy. NECK: Supple. CARDIOVASCULAR: Regular rate and rhythm without murmurs, gallops, rubs. RESPIRATORY: Clear to auscultation bilaterally. No wheezing, rales or rhonchi. GASTROINTESTINAL: Abdomen Soft, nontender, nondistended. No palpable masses. No guarding. MUSCULOSKELETAL: Extremities without clubbing, cyanosis, edema, nontender. NEUROLOGIC: Awake and alert, cranial nerves II-XII intact. Strength 5/5 in all four muscle groups. PSYCHIATRIC: Slightly flat affect. LABORATORY DATA White count 17.6, hemoglobin 13.2, hematocrit 39.4, platelet count 1340. Sodium 134, potassium 2.3, chloride 102, bicarb 22.3, BUN five, creatinine 0.61, GFR 111, glucose 95. Urine showed urine pH of 7.0, specific gravity 1.015, moderate blood, large leukocyte esterase, negative nitrates IMAGING STUDIES CT abdomen and pelvis without contrast images reviewed, agree with radiologist report. The patient has a 9 mm distal right ureteral stone with mild hydronephrosis as well as non-obstructing right renal stones. ASSESSMENT The patient is a 36-year-old female admitted with right flank pain, dysuria, urinary frequency and found to have a distal right ureteral stone approximately __ mm in size with mild hydronephrosis. PLAN We will start the patient on ____ 15 mg IV q.6 h as well as Flomax 0.4 mg daily. We will have him strain all urine. We will increase with IV fluids. Antibiotics per primary team. If she is not improved 12-___ then she likely will need intervention in terms of a cystoscopy and right ureteral stent placement. However, due to the large size of the stone, there is a possibility that we may not be able to pass a stent up into her kidney and may require nephrostomy tube. We will reevaluate her in the day or so. Thank you for this consultation. Jose R Moreno MD EMLaura/ /7:33 PM /7:53 PM
[2016-12-11] MEDS: SODIUM CHLOR 0.9% 1000 ML INJ 1,000 ML IV SCH (20:13)
[2016-12-11] MEDS: QUEtiapine FUMARATE 100 MG TAB PO SCH (20:13)
[2016-12-11] MEDS: buPROPion HCL 100 MG SUSTAINED RELEASE TAB PO SCH (20:13)
[2016-12-11] MEDS: TAMSULOSIN HCL 0.4 MG CAP PO SCH (20:13)
[2016-12-11] MEDS: KETOROLAC TROMETHAMINE 30 MG/ML (IVP) VIAL IV PUSH SCH (20:15)
[2016-12-11 21:42] LABS: CHLAMYDIA PCR NOT DETECTED (NOT DETECT); NEISSERIA PCR NOT DETECTED (NOT DETECT)
[2016-12-12] VITALS: BP_SYST 100; BP_SYST 65; BP_DIAS 65; PULSE 84; RESP 17; TEMP 98.4; O2SAT 100
[2016-12-12] MEDS: KETOROLAC TROMETHAMINE 30 MG/ML (IVP) VIAL IV PUSH SCH ×4 (00:26→17:39)
[2016-12-12 04:00] VITALS: BP 91/53; PULSE 84; RESP 17; TEMP 97.6; O2SAT 94
[2016-12-12] MEDS: SODIUM CHLOR 0.9% 1000 ML INJ 1,000 ML IV SCH ×3 (04:00→22:06)
[2016-12-12 07:51] LABS: AUTOMATED NEUTROPHIL # 7.4 TH/MM3 (1.8-7.7); BASOPHIL # 0.1 TH/MM3 (0-0.2); BASOPHIL % 0.9 % (0.0-2.0); EOSINOPHIL # 0.1 TH/MM3 (0-0.4); EOSINOPHIL % 0.7 % (0.0-4.0); HEMO FLAGS DIFF FINAL; MEAN CORPUSCULAR HEMOGLOBIN 30.9 PG (27.0-34.0); MEAN CORPUSCULAR HGB CONC 33.3 % (32.0-36.0); MONO % 13.9 % (0.0-8.0); NEUT % 74.5 % (16.0-70.0); PLATELET COUNT 295 TH/MM3 (150-450); RED BLOOD COUNT 3.77 MIL/MM3 (4.00-5.30); RED CELL DISTRIBUTION WIDTH 12.9 % (11.6-17.2); WHITE BLOOD COUNT 9.9 TH/MM3 (4.0-11.0)
[2016-12-12 08:00] VITALS: BP 107/60; PULSE 77; RESP 12; TEMP 99.1; O2SAT 97
--- NOTE | 2016-12-12 08:14 | HHI.PR ---
Subjective Remarks f/u; pyelonephritis still with pain to both flanks which hasn't improved as much. has some nausea but no emesis. T max 100.9. d/w the RN and no other acute issues over night. Objective Vitals Vital Signs Date Time Temp Pulse Resp B/P Pulse Ox O2 Delivery O2 Flow Rate FiO2 12/12/16 06:43 16 12/12/16 04:00 97.6 84 17 91/53 94 12/12/16 00:00 98.4 84 17 100/65 100 12/11/16 20:00 98.8 90 18 96/53 96 12/11/16 14:40 100.9 98 22 103/67 100 Result Diagram: 12/12/16 0730 12/11/16 1500 Imaging Last Impressions Abdomen/Pelvis CT 12/11/16 1612 Signed Impressions: Service Date/Time: Sunday, December 11, 2016 17:06 - CONCLUSION: 1. Right- sided obstructive uropathy with a large 10 mm x 7 mm calculus in the distal right ureter as above. Mild right hydronephrosis. 2. Bilateral medullary nephrocalcinosis with numerous nonobstructing calculi predominantly in the right kidney. Raudel Dobbs MD Objective Remarks GENERAL: This is a well-nourished, well-developed patient, in no apparent distress. CARDIOVASCULAR: Regular rate and regular rhythm without murmurs, gallops, or rubs. RESPIRATORY: Clear to auscultation. Breath sounds equal bilaterally. No wheezes , rales, or rhonchi. GASTROINTESTINAL: Abdomen soft, bilateral flank tenderness, nondistended. Normal, active bowel sounds MUSCULOSKELETAL: Extremities without clubbing, cyanosis, or edema. NEURO: Alert & Oriented x4 to person, place, time, situation. Moves all ext x4 Medications and IVs Current Medications Ondansetron HCl 4 mg 4 mg ONCE ONCE IVP Last administered on 12/11/16 16:18; Start 12/11/16 at 15:45; Stop 12/11/16 at 15:46; Status DC Sodium Chloride (NS 1000 ml Inj) 1,000 ml @ 1,000 mls/hr Q1H IV Last administered on 12/11/16 16:17; Start 12/11/16 at 15:34; Stop 12/11/16 at 16:33; Status DC Morphine Sulfate (Morphine Inj) 2.5 mg ONCE ONCE IV PUSH Last administered on 12/11/16 16:18; Start 12/11/16 at 15:45; Stop 12/11/16 at 15:46; Status DC Acetaminophen 650 mg 650 mg ONCE ONCE PO Last administered on 12/11/16 16:19; Start 12/11/16 at 16:00; Stop 12/11/16 at 16:01; Status DC Sodium Chloride 1,000 ml @ 999 mls/hr BOLUS ONCE IV Last administered on 16:27; Start 12/11/16 at 16:15; Stop 12/11/16 at 17:15; Status DC Ceftriaxone Sodium/Sodium Chloride (Rocephin Inj/NS Inj) 100 ml @ 200 mls/hr ONCE ONCE IV Last administered on 12/11/16 16:45; Start 12/11/16 at 16:30; Stop 12/11/16 at 16:59; Status DC Potassium Chloride 20 meq 20 meq ONCE ONCE PO Last administered on 12/11/16 20 :13; Start 12/11/16 at 18:30; Stop 12/11/16 at 18:37; Status DC Ceftriaxone Sodium/Sodium Chloride (Rocephin Inj/NS Inj) 100 ml @ 200 mls/hr Q24H IV ; Start 12/12/16 at 16:00 Ondansetron HCl (Zofran Inj) 4 mg Q8HR PRN IV PUSH NAUSEA; Start 12/11/16 at 17: 15 Acetaminophen (Tylenol) 650 mg Q4H PRN PO FEVER/ PAIN 1-5; Start 12/11/16 at 17: 15 Acetaminophen/ Hydrocodone Bitart ([place] 5-325 Mg) 1 tab Q4H PRN PO PAIN 6-10 ; Start 12/11/16 at 17:15 Albuterol Sulfate (Proair Hfa Inh) 2 puff Q6HR PRN INH SHORTNESS OF BREATH; Start 12/11/16 at 20:00 Bupropion HCl (Wellbutrin Sr 12 Hr) 100 mg Q12HR PO Last administered on 20:13; Start 12/11/16 at 21:00 Quetiapine Fumarate 100 mg 100 mg HS PO Last administered on 12/11/16 20:13; Start 12/11/16 at 21:00 Sodium Chloride (NS 1000 ml Inj) 1,000 ml @ 100 mls/hr Q10H IV Last administered on 12/12/16 05:44; Start 12/11/16 at 18:00 Ketorolac Tromethamine (Toradol Inj) 15 mg Q6HR IV PUSH Last administered on 05:43; Start 12/11/16 at 19:15; Stop 12/16/16 at 19:14 Tamsulosin HCl (Flomax) 0.4 mg DAILY PO Last administered on 12/11/16 20:13; Start 12/11/16 at 19:15 A/P Assessment and Plan A/P - severe sepsis due to complicated pyelonephritis- patient was treated with PO Cipro as outpatient with no improvement. CT of the abdomen reviewed with; right obstructive uropathy with large right distal ureteral stone continue with IV antibiotic- follow the cultures- continue with pain control. awaiting urology follow-up and recommendations. -hypokalemia; replaced. -bacterial vaginosis; start Flagyl -depression; resumed home meds -DVT prophylaxis; early ambulation Scott Guzman MD Dec 12, 2016 08:14
[2016-12-12 08:19] LABS: BICARBONATE 20.3 MEQ/L (21.0-32.0); POTASSIUM 3.9 MEQ/L (3.5-5.1)
[2016-12-12] MEDS: metroNIDAZOLE 500 MG TAB PO SCH ×2 (08:38→22:01)
[2016-12-12] MEDS: buPROPion HCL 100 MG SUSTAINED RELEASE TAB PO SCH ×2 (08:38→22:01)
[2016-12-12] MEDS: TAMSULOSIN HCL 0.4 MG CAP PO SCH (08:38)
[2016-12-12] MEDS: ACETAMINOPHEN/HYDROcodone 325 MG/5 MG TAB PO PRN ×4 (08:41→22:03)
--- NOTE | 2016-12-12 08:43 | RADRPT ---
EXAM DATE/TIME: 12/12/2016 07:53 [facility] COMPARISON: CT ABDOMEN & PELVIS W/O CONTRAST, December 11, 2016, 17:06. INDICATIONS : Renal calculi. MEDICAL HISTORY : None. SURGICAL HISTORY : section. Tubal ligation. ENCOUNTER: Initial ACUITY: 2 days PAIN SCORE: 7/10 LOCATION: Bilateral posterior abdomen FINDINGS: Single frontal view of the abdomen demonstrates a stable 9 x 5 mm density overlying the right pelvis and sacroiliac joint. This represents the right ureteral stone documented on the prior examination. T here are 2 densities overlying the right upper pole kidney and a single density overlying the right l ower pole kidney measuring up to 3 mm each. These representing nonobstructing stones identified on re cent CT. No left renal stones are identified but the left kidney is obscured by overlying bowel gas a nd stool. There is a nonobstructive bowel gas pattern. No organomegaly is appreciated. Bones demonstrate no acu te finding. CONCLUSION: 1. 9 x 5 mm stone in a stable position in the right pelvis. 2. There are 3 nonobstructing right renal stones again identified measuring approximately 3 mm each. The remaining stones identified on yesterday's CT are not appreciated. Walt Lau MD on December 12, 2016 at 8:37 Board Certified Radiologist. This report was verified electronically.
[2016-12-12 12:00] VITALS: BP 125/63; PULSE 87; RESP 16; TEMP 98.5; O2SAT 99
[2016-12-12 16:00] VITALS: BP 116/79; PULSE 78; RESP 12; TEMP 98.3; O2SAT 99
[2016-12-12] MEDS: cefTRIAXone INJ 1,000 MG in SODIUM CHLORIDE 0.9% INJ 100 ML IV SCH (17:39)
[2016-12-12 20:00] VITALS: BP 145/82; PULSE 76; RESP 18; TEMP 97.5; O2SAT 100
[2016-12-12] MEDS: QUEtiapine FUMARATE 100 MG TAB PO SCH (22:01)
[2016-12-13] VITALS: BP 135/71; PULSE 81; RESP 17; TEMP 97.6; O2SAT 99
[2016-12-13] MEDS: KETOROLAC TROMETHAMINE 30 MG/ML (IVP) VIAL IV PUSH SCH ×4 (00:22→19:10)
[2016-12-13 04:00] VITALS: BP 98/50; PULSE 86; RESP 17; TEMP 97.2; O2SAT 94
[2016-12-13 08:00] VITALS: BP 130/83; PULSE 83; RESP 16; TEMP 97.9; O2SAT 99
[2016-12-13] MEDS: buPROPion HCL 100 MG SUSTAINED RELEASE TAB PO SCH ×2 (08:31→21:47)
[2016-12-13] MEDS: SODIUM CHLOR 0.9% 1000 ML INJ 1,000 ML IV SCH ×2 (08:34)
[2016-12-13] MEDS: ACETAMINOPHEN/HYDROcodone 325 MG/5 MG TAB PO PRN ×3 (08:43→21:51)
[2016-12-13] MEDS ORDERED: GENTAMICIN SULFATE 80 MG/2 ML VIAL ONE (09:53)
[2016-12-13] MEDS ORDERED: FUROSEMIDE 40 MG/4 ML VIAL ONE (09:53)
[2016-12-13] MEDS ORDERED: CEFU1TAB20 PO (10:11)
[2016-12-13] MEDS ORDERED: NORC5TAB PO (10:11)
[2016-12-13] MEDS ORDERED: METR-1 PO (10:16)
--- NOTE | 2016-12-13 10:16 | HHI.PR ---
Subjective Remarks in no acute distress. pain is somewhat better today. no fever,nausea or vomiting. d/w the RN. Objective Vitals Vital Signs Date Time Temp Pulse Resp B/P Pulse Ox O2 Delivery O2 Flow Rate FiO2 12/13/16 04:00 97.2 86 17 98/50 94 12/13/16 00:00 97.6 81 17 135/71 99 12/12/16 20:00 97.5 76 18 145/82 100 12/12/16 16:00 98.3 78 12 116/79 99 12/12/16 12:00 98.5 87 16 125/63 99 I/O 12/12/16 12/12/16 12/12/16 12/13/16 12/13/16 12/13/16 06:59 14:59 22:59 06:59 14:59 22:59 Intake Total 345 ml 800 ml 800 ml Balance 345 ml 800 ml 800 ml Intake Oral 345 ml IV Total 800 ml 800 ml # Voids 2 3 1 # Bowel Movements 0 Result Diagram: 12/12/16 0730 12/12/16 0730 Imaging Last Impressions Abdomen X-Ray 12/12/16 0600 Signed Impressions: Service Date/Time: Monday, December 12, 2016 07:53 - CONCLUSION: 1. 9 x 5 mm stone in a stable position in the right pelvis. 2. There are 3 nonobstructing right renal stones again identified measuring approximately 3 mm each. The remaining stones identified on yesterday's CT are not appreciated. Walt Lau MD Abdomen/Pelvis CT 12/11/16 1612 Signed Impressions: Service Date/Time: Sunday, December 11, 2016 17:06 - CONCLUSION: 1. Right- sided obstructive uropathy with a large 10 mm x 7 mm calculus in the distal right ureter as above. Mild right hydronephrosis. 2. Bilateral medullary nephrocalcinosis with numerous nonobstructing calculi predominantly in the right kidney. Raudel Dobbs MD Objective Remarks GENERAL: This is a well-nourished, well-developed patient, in no apparent distress. CARDIOVASCULAR: Regular rate and regular rhythm without murmurs, gallops, or rubs. RESPIRATORY: Clear to auscultation. Breath sounds equal bilaterally. No wheezes , rales, or rhonchi. GASTROINTESTINAL: Abdomen soft, bilateral flank tenderness- somewhat improved, nondistended. Normal, active bowel sounds MUSCULOSKELETAL: Extremities without clubbing, cyanosis, or edema. NEURO: Alert & Oriented x4 to person, place, time, situation. Moves all ext x4 Medications and IVs Current Medications Ondansetron HCl 4 mg 4 mg ONCE ONCE IVP Last administered on 12/11/16 16:18; Start 12/11/16 at 15:45; Stop 12/11/16 at 15:46; Status DC Sodium Chloride (NS 1000 ml Inj) 1,000 ml @ 1,000 mls/hr Q1H IV Last administered on 12/11/16 16:17; Start 12/11/16 at 15:34; Stop 12/11/16 at 16:33; Status DC Morphine Sulfate (Morphine Inj) 2.5 mg ONCE ONCE IV PUSH Last administered on 12/11/16 16:18; Start 12/11/16 at 15:45; Stop 12/11/16 at 15:46; Status DC Acetaminophen 650 mg 650 mg ONCE ONCE PO Last administered on 12/11/16 16:19; Start 12/11/16 at 16:00; Stop 12/11/16 at 16:01; Status DC Sodium Chloride 1,000 ml @ 999 mls/hr BOLUS ONCE IV Last administered on 16:27; Start 12/11/16 at 16:15; Stop 12/11/16 at 17:15; Status DC Ceftriaxone Sodium/Sodium Chloride (Rocephin Inj/NS Inj) 100 ml @ 200 mls/hr ONCE ONCE IV Last administered on 12/11/16 16:45; Start 12/11/16 at 16:30; Stop 12/11/16 at 16:59; Status DC Potassium Chloride 20 meq 20 meq ONCE ONCE PO Last administered on 12/11/16 20 :13; Start 12/11/16 at 18:30; Stop 12/11/16 at 18:37; Status DC Ceftriaxone Sodium/Sodium Chloride (Rocephin Inj/NS Inj) 100 ml @ 200 mls/hr Q24H IV Last administered on 12/12/16 17:39; Start 12/12/16 at 16:00 Ondansetron HCl (Zofran Inj) 4 mg Q8HR PRN IV PUSH NAUSEA Last administered on 12/12/16 17:39; Start 12/11/16 at 17:15 Acetaminophen (Tylenol) 650 mg Q4H PRN PO FEVER/ PAIN 1-5; Start 12/11/16 at 17: 15 Acetaminophen/ Hydrocodone Bitart ([place] 5-325 Mg) 1 tab Q4H PRN PO PAIN 6-10 Last administered on 12/13/16 08:43; Start 12/11/16 at 17:15 Albuterol Sulfate (Proair Hfa Inh) 2 puff Q6HR PRN INH SHORTNESS OF BREATH; Start 12/11/16 at 20:00 Bupropion HCl (Wellbutrin Sr 12 Hr) 100 mg Q12HR PO Last administered on 08:31; Start 12/11/16 at 21:00 Quetiapine Fumarate 100 mg 100 mg HS PO Last administered on 12/12/16 22:01; Start 12/11/16 at 21:00 Sodium Chloride (NS 1000 ml Inj) 1,000 ml @ 100 mls/hr Q10H IV Last administered on 12/12/16 22:06; Start 12/11/16 at 18:00 Ketorolac Tromethamine (Toradol Inj) 15 mg Q6HR IV PUSH Last administered on 06:03; Start 12/11/16 at 19:15; Stop 12/16/16 at 19:14 Tamsulosin HCl (Flomax) 0.4 mg DAILY PO Last administered on 12/12/16 08:38; Start 12/11/16 at 19:15 Metronidazole (Flagyl) 500 mg BID PO Last administered on 12/12/16 22:01; Start 12/12/16 at 09:00 Furosemide (Lasix Inj) 40 mg STK-MED ONCE .ROUTE ; Start 12/13/16 at 09:53; Stop 12/13/16 at 09:54; Status DC Gentamicin Sulfate (Gentamicin Inj) 80 mg STK-MED ONCE .ROUTE ; Start 12/13/16 at 09:53; Stop 12/13/16 at 09:54; Status DC A/P Assessment and Plan A/P - severe sepsis due to complicated pyelonephritis- patient was treated with PO Cipro as outpatient with no improvement. CT of the abdomen reviewed with; right obstructive uropathy with large right distal ureteral stone continue with IV antibiotic-UC with e-coli. continue with pain control. plan for cystoscopy today- -hypokalemia; replaced. -bacterial vaginosis; continue Flagyl -depression; resumed home meds -DVT prophylaxis; early ambulation Discharge Planning when cleared by urology. d/w the patient and RN. Scott Guzman MD Dec 13, 2016 10:16
[2016-12-13] MEDS ORDERED: PROPOFOL 200 MG/20 ML AMP IV ONE (12:00)
[2016-12-13] MEDS ORDERED: PHENYLEPH/NS 1000 MCG/10 ML SYR IV ONE (12:00)
[2016-12-13] MEDS ORDERED: ONDANSETRON HCL 4 MG/2 ML VIAL IV PUSH ONE (12:00)
[2016-12-13] MEDS ORDERED: LACTATED RINGER'S 1000 ML INJ 1,000 ML IV ONE (12:00)
[2016-12-13] MEDS ORDERED: DEXAMETHASONE SOD PHOS 4 MG/ML VIAL ONE (12:18)
[2016-12-13] MEDS ORDERED: FAMOTIDINE 20 MG/2 ML VIAL ONE (12:18)
[2016-12-13] MEDS ORDERED: MIDAZOLAM HCL 2 MG/2 ML VIAL ONE (12:18)
[2016-12-13] MEDS ORDERED: IOHEXOL 350 MG/ML 50 ML BTL (for RAD DIAG) ONE (12:45)
--- NOTE | 2016-12-13 13:13 | PD.OP ---
Operative Report Date of Surgery: Dec 13, 2016 Preoperative Diagnosis: right distal ureteral stone Postoperative Diagnosis: Procedure: cystoscopy, right retrograde pyelogram, right ureteroscopy, laser lithotripsy, stone basketing with removal, ureteral stent insertion Surgeon: Jose R Jackson Parts Washer(s): n/a Operation and Findings: stent to be removed in the morning by pulling string. Jose R Jackson MD Dec 13, 2016 13:13
[2016-12-13] MEDS ORDERED: fentaNYL CITRATE 250 MCG/5 ML AMP ONE (13:34)
--- NOTE | 2016-12-13 13:39 | MP ---
cc: JOSE R MORENO MD DATE OF SURGERY 12/13/2016 PREOPERATIVE DIAGNOSIS 1. Right distal ureteral stone with hydronephrosis 2. Right flank pain 3. Pyelonephritis POSTOPERATIVE DIAGNOSIS 1. Right distal ureteral stone with hydronephrosis 2. Right flank pain 3. Pyelonephritis PROCEDURE PERFORMED 1. Cystourethroscopy 2. Right retrograde pyelogram 3. Right ureteroscopy 4. Laser lithotripsy 5. Stone basketing with manipulation removal 6. Insertion of right ureteral stent SURGEON Jose R Moreno MD ANESTHESIA General COMPLICATIONS None DRAINS A 6 x 28 double-J right ureteral stent with string attached. SPECIMENS Right distal ureteral stone for analysis DISPOSITION To recovery INDICATION The patient is a 36-year-old female who presented to [facility] with right flank pain, dysuria and frequency two days ago. A CT of the abdomen and pelvis without contrast done which showed a large 9 mm distal right ureteral stone with mild hydronephrosis as well as several nonobstructing stones in her right kidney. She was found to have a white count 17,000 and a low grade fever. She subsequently was admitted, started on antibiotics. Urology was consulted. Due to her persistent pain, it was decided that we would attempted to treat the stone definitively while she was in the hospital. After the risks, benefits and alternatives explained to the patient, the patient wanted to proceed and informed consent was obtained. DETAILS OF THE PROCEDURE The patient was properly identified, brought back to the cystoscopy were she was laid supine on the cystoscopy table. A proper time-out was performed. The patient was then placed under general anesthetic. The patient has been receiving [id number] Rocephin, therefore preop antibiotics were not indicated. She was then placed in the dorsal lithotomy position, prepped and draped in a normal sterile surgical fashion. A rigid cystoscope was carefully passed into her bladder per urethra without any difficulty. The bladder was carefully examined and there was no evidence of tumor, stones, diverticula or trabeculations. Both ureteral orifices were identified in normal anatomic location. A 5-Italian open ended ureteral catheter was then passed just inside her right ureteral orifice and a right retrograde pyelogram was performed which showed a very tortuous, but dilated ureter with a filling defects near her iliac bone consistent with CT findings. A guidewire was then carefully passed through the indwelling ureteral catheter up into the right kidney under the guidance of fluoroscopy. The ureteral catheter was removed leaving the safety wire in place. A semi-rigid soft dilating ureteroscope was then passed long the wire up into her distal ureter. Her ureter was very tortuous, but I able to transverse it and come across the stone. A 365 micron laser fiber was then used to easily fragment the stone up into much smaller pieces. A 0-tipped spatula was used to remove several of the large fragments from her ureter. The rest of her ureter appeared to be patent with just residual dust remaining. Due to the trauma from the ureteroscopy, a stent was then placed over the safety wire up into the right kidney and fluoroscopic image confirmed the proximal portion of the stent in the upper pole. At this time, the bladder was then drained. The scope was removed. The string that was attached to the distal portion of the stent was then secured to her thigh. This concluded the procedure. The patient was extubated and sent to the recovery in stable condition. She will be transferred back to the floor for routine postoperative care. The stent will be removed at the bedside in the morning. As long as she is doing well, she will be discharged home. MD EITAN Cruz/JENN /1:14 PM /1:20 PM
[2016-12-13] MEDS ORDERED: DO NOT ADM ANY ANTICOAGULANT DRUGS PRN (14:15)
[2016-12-13] MEDS: cefTRIAXone INJ 1,000 MG in SODIUM CHLORIDE 0.9% INJ 100 ML IV SCH (15:29)
[2016-12-13] MEDS: metroNIDAZOLE 500 MG TAB PO SCH ×2 (15:29→21:46)
[2016-12-13] MEDS: TAMSULOSIN HCL 0.4 MG CAP PO SCH (15:29)
[2016-12-13 16:00] VITALS: BP 112/61; PULSE 78; RESP 18; TEMP 98; O2SAT 100
[2016-12-13 20:00] VITALS: BP 95/48; PULSE 70; RESP 17; TEMP 97.4; O2SAT 97
[2016-12-13] MEDS: QUEtiapine FUMARATE 100 MG TAB PO SCH (21:46)
[2016-12-14] VITALS: BP 102/55; PULSE 62; RESP 17; TEMP 96.1; O2SAT 99
[2016-12-14 04:00] VITALS: BP 119/59; PULSE 77; RESP 18; TEMP 96.2; O2SAT 99
[2016-12-14] MEDS: ACETAMINOPHEN/HYDROcodone 325 MG/5 MG TAB PO PRN ×2 (06:33→14:08)
[2016-12-14] MEDS: KETOROLAC TROMETHAMINE 30 MG/ML (IVP) VIAL IV PUSH SCH ×3 (06:33→11:05)
[2016-12-14] MEDS: SODIUM CHLOR 0.9% 1000 ML INJ 1,000 ML IV SCH (07:57)
[2016-12-14 08:00] VITALS: BP 104/55; PULSE 76; RESP 18; TEMP 98; O2SAT 98
--- NOTE | 2016-12-14 08:43 | HHI.PR ---
Subjective Remarks in no acute distress. pain is fairly controlled. no fever. no nausea or vomiting. Objective Vitals Vital Signs Date Time Temp Pulse Resp B/P Pulse Ox O2 Delivery O2 Flow Rate FiO2 12/14/16 07:41 19 12/14/16 07:41 19 12/14/16 04:00 96.2 77 18 119/59 99 12/14/16 00:00 96.1 62 17 102/55 99 12/13/16 20:00 97.4 70 17 95/48 97 12/13/16 16:00 98.0 78 18 112/61 100 12/13/16 14:27 98.0 78 13 93/57 98 Nasal Cannula 2 12/13/16 14:15 62 13 90/51 97 Nasal Cannula 2 12/13/16 14:00 66 13 91/54 96 Nasal Cannula 2 12/13/16 13:45 63 11 94/54 96 Nasal Cannula 2 12/13/16 13:30 68 11 91/55 97 Nasal Cannula 2 12/13/16 13:28 97.7 67 11 96/52 96 Nasal Cannula 2 I/O 12/13/16 12/13/16 12/13/16 12/14/16 12/14/16 12/14/16 07:00 15:00 23:00 07:00 15:00 23:00 Intake Total 800 ml 1750 ml 1145 ml 855 ml Output Total 5 ml 600 ml Balance 800 ml 1745 ml 545 ml 855 ml Intake Oral 0 ml 480 ml IV Total 800 ml 400 ml 665 ml 855 ml Other 1350 ml Output Urine Total 600 ml Estimated Blood Loss 5 ml # Voids 1 0 Result Diagram: 12/12/1672912/12/1630 Imaging Last Impressions Abdomen X-Ray 12/12/16 06 Signed Impressions: Service Date/Time: Monday, December 12, 2016 07:53 - CONCLUSION: 1. 9 x 5 mm stone in a stable position in the right pelvis. 2. There are 3 nonobstructing right renal stones again identified measuring approximately 3 mm each. The remaining stones identified on yesterday's CT are not appreciated. Walt Lau MD Abdomen/Pelvis CT 12/11/16 1612 Signed Impressions: Service Date/Time: Sunday, December 11, 2016 17:06 - CONCLUSION: 1. Right- sided obstructive uropathy with a large 10 mm x 7 mm calculus in the distal right ureter as above. Mild right hydronephrosis. 2. Bilateral medullary nephrocalcinosis with numerous nonobstructing calculi predominantly in the right kidney. Raudel Dobbs MD Objective Remarks GENERAL: This is a well-nourished, well-developed patient, in no apparent distress. CARDIOVASCULAR: Regular rate and regular rhythm without murmurs, gallops, or rubs. RESPIRATORY: Clear to auscultation. Breath sounds equal bilaterally. No wheezes , rales, or rhonchi. GASTROINTESTINAL: Abdomen soft, bilateral flank tenderness- somewhat improved, nondistended. Normal, active bowel sounds MUSCULOSKELETAL: Extremities without clubbing, cyanosis, or edema. NEURO: Alert & Oriented x4 to person, place, time, situation. Moves all ext x4 Procedures 1. Cystourethroscopy 2. Right retrograde pyelogram 3. Right ureteroscopy 4. Laser lithotripsy 5. Stone basketing with manipulation removal 6. Insertion of right ureteral stent Medications and IVs Current Medications Ondansetron HCl 4 mg 4 mg ONCE ONCE IVP Last administered on 12/11/16 16:18; Start 12/11/16 at 15:45; Stop 12/11/16 at 15:46; Status DC Sodium Chloride (NS 1000 ml Inj) 1,000 ml @ 1,000 mls/hr Q1H IV Last administered on 12/11/16 16:17; Start 12/11/16 at 15:34; Stop 12/11/16 at 16:33; Status DC Morphine Sulfate (Morphine Inj) 2.5 mg ONCE ONCE IV PUSH Last administered on 12/11/16 16:18; Start 12/11/16 at 15:45; Stop 12/11/16 at 15:46; Status DC Acetaminophen 650 mg 650 mg ONCE ONCE PO Last administered on 12/11/16 16:19; Start 12/11/16 at 16:00; Stop 12/11/16 at 16:01; Status DC Sodium Chloride 1,000 ml @ 999 mls/hr BOLUS ONCE IV Last administered on 16:27; Start 12/11/16 at 16:15; Stop 12/11/16 at 17:15; Status DC Ceftriaxone Sodium/Sodium Chloride (Rocephin Inj/NS Inj) 100 ml @ 200 mls/hr ONCE ONCE IV Last administered on 12/11/16 16:45; Start 12/11/16 at 16:30; Stop 12/11/16 at 16:59; Status DC Potassium Chloride 20 meq 20 meq ONCE ONCE PO Last administered on 12/11/16 20 :13; Start 12/11/16 at 18:30; Stop 12/11/16 at 18:37; Status DC Ceftriaxone Sodium/Sodium Chloride (Rocephin Inj/NS Inj) 100 ml @ 200 mls/hr Q24H IV Last administered on 12/13/16 15:29; Start 12/12/16 at 16:00 Ondansetron HCl (Zofran Inj) 4 mg Q8HR PRN IV PUSH NAUSEA Last administered on 12/12/16 17:39; Start 12/11/16 at 17:15 Acetaminophen (Tylenol) 650 mg Q4H PRN PO FEVER/ PAIN 1-5; Start 12/11/16 at 17: 15 Acetaminophen/ Hydrocodone Bitart ([place] 5-325 Mg) 1 tab Q4H PRN PO PAIN 6-10 Last administered on 12/14/16 06:33; Start 12/11/16 at 17:15 Albuterol Sulfate (Proair Hfa Inh) 2 puff Q6HR PRN INH SHORTNESS OF BREATH; Start 12/11/16 at 20:00 Bupropion HCl (Wellbutrin Sr 12 Hr) 100 mg Q12HR PO Last administered on 21:47; Start 12/11/16 at 21:00 Quetiapine Fumarate 100 mg 100 mg HS PO Last administered on 12/13/16 21:46; Start 12/11/16 at 21:00 Sodium Chloride (NS 1000 ml Inj) 1,000 ml @ 100 mls/hr Q10H IV Last administered on 12/14/16 07:57; Start 12/11/16 at 18:00 Ketorolac Tromethamine (Toradol Inj) 15 mg Q6HR IV PUSH Last administered on 06:33; Start 12/11/16 at 19:15; Stop 12/16/16 at 19:14 Tamsulosin HCl (Flomax) 0.4 mg DAILY PO Last administered on 12/13/16 15:29; Start 12/11/16 at 19:15 Metronidazole (Flagyl) 500 mg BID PO Last administered on 12/13/16 21:46; Start 12/12/16 at 09:00 Furosemide (Lasix Inj) 40 mg STK-MED ONCE .ROUTE ; Start 12/13/16 at 09:53; Stop 12/13/16 at 09:54; Status DC Gentamicin Sulfate (Gentamicin Inj) 80 mg STK-MED ONCE .ROUTE ; Start 12/13/16 at 09:53; Stop 12/13/16 at 09:54; Status DC Midazolam HCl (Versed Inj) 2 mg STK-MED ONCE .ROUTE Last administered on 12:17; Start 12/13/16 at 12:18; Stop 12/13/16 at 12:19; Status DC Dexamethasone Sodium Phosphate (Decadron Inj) 4 mg STK-MED ONCE .ROUTE Last administered on 12/13/16 12:19; Start 12/13/16 at 12:18; Stop 12/13/16 at 12:19; Status DC Famotidine (Pepcid Inj) 20 mg STK-MED ONCE .ROUTE Last administered on 12:20; Start 12/13/16 at 12:18; Stop 12/13/16 at 12:19; Status DC Fentanyl Citrate (fentaNYL INJ) 250 mcg STK-MED ONCE .ROUTE ; Start 12/13/16 at 13:34; Stop 12/13/16 at 13:35; Status DC Iohexol (Omnipaque 350 Inj) 50 ml STK-MED ONCE .XX Last administered on 12:45; Start 12/13/16 at 12:45; Stop 12/13/16 at 13:45; Status DC Miscellaneous Information ALL NURSING DEPARTME... UNSCH PRN .XX SEE LABEL COMMENTS; Start 12/13/16 at 14:15; Stop 12/14/16 at 14:14 A/P Assessment and Plan A/P - severe sepsis due to complicated pyelonephritis- patient was treated with PO Cipro as outpatient with no improvement. CT of the abdomen reviewed with; right obstructive uropathy with large right distal ureteral stone s/p 1. Cystourethroscopy/2. Right retrograde pyelogram/3. Right ureteroscopy/ 4. Laser lithotripsy/5. Stone basketing with manipulation removal 6. Insertion of right ureteral stent continue with IV antibiotic-UC with e-coli. continue with pain control. -hypokalemia; replaced. -bacterial vaginosis; continue Flagyl -depression; resumed home meds -DVT prophylaxis; early ambulation Discharge Planning when cleared by urology. d/w the patient and RN. f/u with pcp and urology upon discharge. Scott Guzman MD Dec 14, 2016 08:43
--- NOTE | 2016-12-14 08:44 | HHI.DS ---
Discharge Summary Admission Date Dec 11, 2016 at 16:31 Discharge Date: Dec 14, 2016 Admitting Diagnosis pyelonephritis, sepsis (1) Pyelonephritis ICD Code: N12 Diagnosis: Principal (2) Severe sepsis ICD Code: A41.9 Diagnosis: Principal Procedures 1. Cystourethroscopy 2. Right retrograde pyelogram 3. Right ureteroscopy 4. Laser lithotripsy 5. Stone basketing with manipulation removal 6. Insertion of right ureteral stent Brief History - From Admission patient is a 36 y/o female with history of depression who presented to ER with flank pain. she says that she started to have flank pain along with dysuria and urinary frequency about two weeks ago. she was seen in ER and was discharged home with po Cipro. she says that she initially felt better however the symptoms started to get worse again few days ago. she reports some nausea, fever and chills. she's complaining of flank pain which is bilateral and moderate to severe in intensity. pain has some radiation to the periumbilical area. CBC/BMP: 12/12/16 0730 12/12/16 0730 Significant Findings Laboratory Tests Test 12/11/16 12/11/16 12/11/16 12/12/16 14:55 15:00 17:05 07:30 Urine Turbidity HAZY (CLEAR) Urine Protein 30 mg/dL (NEG-TRACE) Urine Occult Blood MOD (NEG) Urine Leukocyte Esterase LARGE (NEG) Urine WBC 62 /hpf (0-5) Urine Bacteria FEW /hpf (NONE) Urine Mucus FEW /lpf (OCC) Sodium Level 134 MEQ/L (136-145) Potassium Level 3.3 MEQ/L (3.5-5.1) Blood Urea Nitrogen 5 MG/DL (7-18) Lactic Acid Level 2.6 mmol/L (0.4-2.0) White Blood Count 17.6 TH/MM3 (4.0-11.0) Neutrophils (%) (Auto) 80.0 % 74.5 % (16.0-70.0) (16.0-70.0) Monocytes (%) (Auto) 9.7 % (0.0-8.0) 13.9 % (0.0-8.0) Neutrophils # (Auto) 14.1 TH/MM3 (1.8-7.7) Monocytes # (Auto) 1.7 TH/MM3 1.4 TH/MM3 (0-0.9) (0-0.9) Clue Cells (Wet Prep) PRESENT (NONE) Red Blood Count 3.77 MIL/MM3 (4.00-5.30) Chloride Level 113 MEQ/L (98-107) Carbon Dioxide Level 20.3 MEQ/L (21.0-32.0) Creatinine 0.43 MG/DL (0.50-1.00) Calcium Level 8.3 MG/DL (8.5-10.1) Imaging Last Impressions Abdomen X-Ray 12/12/16 0600 Signed Impressions: Service Date/Time: Monday, December 12, 2016 07:53 - CONCLUSION: 1. 9 x 5 mm stone in a stable position in the right pelvis. 2. There are 3 nonobstructing right renal stones again identified measuring approximately 3 mm each. The remaining stones identified on yesterday's CT are not appreciated. Walt Lau MD Abdomen/Pelvis CT 12/11/16 1612 Signed Impressions: Service Date/Time: Sunday, December 11, 2016 17:06 - CONCLUSION: 1. Right- sided obstructive uropathy with a large 10 mm x 7 mm calculus in the distal right ureter as above. Mild right hydronephrosis. 2. Bilateral medullary nephrocalcinosis with numerous nonobstructing calculi predominantly in the right kidney. Raudel Dobbs MD PE at Discharge GENERAL: This is a well-nourished, well-developed patient, in no apparent distress. CARDIOVASCULAR: Regular rate and regular rhythm without murmurs, gallops, or rubs. RESPIRATORY: Clear to auscultation. Breath sounds equal bilaterally. No wheezes , rales, or rhonchi. GASTROINTESTINAL: Abdomen soft, bilateral flank tenderness- somewhat improved, nondistended. Normal, active bowel sounds MUSCULOSKELETAL: Extremities without clubbing, cyanosis, or edema. NEURO: Alert & Oriented x4 to person, place, time, situation. Moves all ext x4 Hospital Course - severe sepsis due to complicated pyelonephritis- patient was treated with PO Cipro as outpatient with no improvement. CT of the abdomen reviewed with; right obstructive uropathy with large right distal ureteral stone s/p 1. Cystourethroscopy/2. Right retrograde pyelogram/3. Right ureteroscopy/ 4. Laser lithotripsy/5. Stone basketing with manipulation removal 6. Insertion of right ureteral stent continue with IV antibiotic-UC with e-coli. continue with pain control. -hypokalemia; replaced. -bacterial vaginosis; continue Flagyl -depression; resumed home meds -DVT prophylaxis; early ambulation Pt Condition on Discharge: Good Discharge Disposition: Discharge Home Discharge Time: <= 30 minutes Discharge Instructions DIET: Follow Instructions for: Heart Healthy Diet Activities you can perform: Regular-No Restrictions Follow up Referrals: PCP Follow-up Urology New Medications: Cefuroxime (Cefuroxime) 500 Mg Tab 250 MG PO BID Infection Days 7 Ref 0 TAB Hydrocodone-Acetaminophen ([place]) 5-325 mg Tab 1 TAB PO Q6H PRN PAIN #10 Ref 0 TAB Metronidazole (Flagyl) 500 Mg Tab 500 MG PO BID infection Days 5 Ref 0 TAB Continued Medications: Albuterol 6.7 GM Inh (Proventil Hfa 6.7 GM Inh) 90 Mcg/Act Aer 2 PUFF INH Q4-6H PRN SHORTNESS OF BREATH #1 Ref 0 INHALER Bupropion HCl ER 12 HR (Wellbutrin SR 12 HR) 100 Mg Tab 100 MG PO Q12HR Control Depression Ref 0 TAB Quetiapine (Seroquel) 100 Mg Tab 100 MG PO HS Ref 0 TAB Discontinued Medications: Ciprofloxacin (Cipro) 500 Mg Tab 500 MG PO BID Infection #10 Ref 0 TAB Scott Guzman MD Dec 14, 2016 08:44
--- NOTE | 2016-12-14 08:44 | HHI.DCPOC ---
Discharge Care Plan Diagnosis: (1) Pyelonephritis Your Health Problems Are: Urinary Difficulties Goals to Promote Your Health * To prevent worsening of your condition and complications * To maintain your health at the optimal level Directions to Meet Your Goals Take your medications as prescribed Follow your dietary instruction Follow activity as directed Keep your appointments as scheduled Take your immunizations and boosters as scheduled If your symptoms worsen call your PCP, if no PCP go to Urgent Care Center or Emergency Room Smoking is Dangerous to Your Health. Avoid second hand smoke Call the 24-hour hour crisis hotline for domestic abuse at Scott Guzman MD Dec 14, 2016 08:44
[2016-12-14] MEDS: TAMSULOSIN HCL 0.4 MG CAP PO SCH (09:29)
[2016-12-14] MEDS: metroNIDAZOLE 500 MG TAB PO SCH (09:29)
[2016-12-14] MEDS: buPROPion HCL 100 MG SUSTAINED RELEASE TAB PO SCH (09:29)
[2016-12-14] MEDS ORDERED: SERO100T PO (11:54)
[2016-12-14 12:00] VITALS: BP 124/79; PULSE 79; RESP 18; TEMP 98.4; O2SAT 98
== END 2016-12-14 16:45 | disposition home or self-care (01) | DRG 854 ==
LOC: NEPD 14:39 → NEDA 16:31 → HOCA 19:03
PROVIDERS: ADMIT Internal Medicine; ATTEND Internal Medicine
PROC: 0TC68ZZ Extirpation of Matter from Right Ureter, Via Natural or Artificial Opening Endoscopic (ICD-10-PCS; 2016-12-13)
PROC: 0T768DZ Dilation of Right Ureter with Intraluminal Device, Via Natural or Artificial Opening Endoscopic (ICD-10-PCS; 2016-12-13)
PROC: BT1DYZZ Fluoroscopy of Right Kidney, Ureter and Bladder using Other Contrast (ICD-10-PCS; principal; 2016-12-13 12:22)
DX: A41.9 Sepsis, unspecified organism (principal); N13.6 Pyonephrosis; N13.2 Hydronephrosis with renal and ureteral calculous obstruction; R65.20 Severe sepsis without septic shock; F32.9 Major depressive disorder, single episode, unspecified; F17.210 Nicotine dependence, cigarettes, uncomplicated; J45.909 Unspecified asthma, uncomplicated; F41.9 Anxiety disorder, unspecified; E87.6 Hypokalemia; N76.0 Acute vaginitis
CPT/HCPCS: 74000; 74176; 74420; 80048; 81001; 82365; 82370; 83605; 84703; 85025; 87040; 87077; 87086; 87186; 87210; 87491; 87591; 88300; 96374; 96375; C1769; C2617; J0696; J1100; J1580; J1885; J1940; J2250; J2270; J2370; J2405; J3010; J7030; J7120; Q9967

== ENCOUNTER 2016-12-26 09:51 | Emergency (ER) | payer OTHER ==
[~2016-12-26] VITALS: Ht 162.6 cm; Wt 45.5 kg
[~2016-12-26 09:51] MED LIST changes: +CEFU1TAB20 PO; -CIPR-9 PO; +METR-1 PO; +NORC5TAB PO
[2016-12-26 09:52] VITALS: BP 96/56; PULSE 118; RESP 20; TEMP 99.8; O2SAT 95
[2016-12-26 10:06] VITALS: PULSE 113
[2016-12-26] MEDS ORDERED: SODIUM CHLOR 0.9% 1000 ML INJ 1,000 ML IV SCH (10:33)
[2016-12-26] MEDS ORDERED: SODIUM CHLORIDE 0.9% FLUSH 10 ML FLUSH IV FLUSH PRN (10:45)
--- NOTE | 2016-12-26 11:03 | PD ---
HPI Chief Complaint: Complaint Time Seen by Provider: 10:28 Travel History International Travel<30 days: No Contact w/Intl Traveler<30days: No History of Present Illness HPI Patient is a 36-year-old female who returns to emergency room with complaints of dysuria, urinary urgency and frequency. She reports that for the past 3 days , she has been symptomatic, denies any fevers or chills or flank pain. Reports that she was recently admitted to the hospital as she had a right-sided ureteral stone, reports that she was diagnosed with sepsis as well as pyelonephritis. She did have a cystourethroscopy, right retrograde pyelogram, right uteteroscopy, laser lithotripsy, stone basketing with manipulation removal , insertion and retrieval of a right ureteral stent by Dr. Jackson on December 13, 2016. At that time, patient was found to have a right-sided objective uropathy with a large 10 mm x 7mm Calculus in the right distal ureter. Patient was discharged from the hospital on December 14, 2016 with a prescription for cefuroxime for 7 days as well as Flagyl for 5 days, she completed full course of antibiotics 5 days ago. Reports that flank pain has improved, dysuria has gotten worse PFSH Past Medical History Arthritis: No Asthma: Yes Autoimmune Disease: No Blood Disorders: No Anxiety: Yes Depression: Yes Heart Rhythm Problems: No High Cholesterol: No Chemotherapy: No Chest Pain: No Congestive Heart Failure: No COPD: No Cerebrovascular Accident: No Diminished Hearing: No Gastrointestinal Disorders: No GERD: No Glaucoma: No Genitourinary: Yes Hepatitis: No Hiatal Hernia: No Hypertension: No Immune Disorder: No Kidney Stones: No Musculoskeletal: No Neurologic: No Psychiatric: Yes (depression) Reproductive: No Respiratory: Yes Immunizations Current: Yes Myocardial Infarction: No Radiation Therapy: No Renal Failure: No Sickle Cell Disease: No Sleep Apnea: No Thyroid Disease: Yes Ulcer: No ?: Not LMP: 12/10/16 Menopausal: No : 3 Para: 2 Miscarriage: 1 : 0 Tubal Ligation: Yes Past Surgical History Abdominal Surgery: No AICD: No Cardiac Surgery: No Section: Yes (x 2) Ear Surgery: No Endocrine Surgery: No Eye Surgery: No Genitourinary Surgery: Yes (URETHRA STRETCHED CHILDHOOD) Gynecologic Surgery: Yes (C SECTION, TUBAL) Joint Replacement: No Neurologic Surgery: No Oral Surgery: No Pacemaker: No Thoracic Surgery: No Other Surgery: Yes Social History Alcohol Use: Yes (OCC) Tobacco Use: Yes (1PDD) Substance Use: No Allergies-Medications (Allergen,Severity, Reaction): Coded Allergies: Sulfa (Sulfonamide Antibiotics) (Unverified Allergy, Severe, Rash, 12/25/16 ) Reported Meds & Prescriptions Reported Meds & Active Scripts Active Pyridium (Phenazopyridine HCl) 100 Mg Tab 100 Mg PO Q8H PRN 3 Days Macrobid (Nitrofurantoin Monoh/Nitrofur Macro) 100 Mg Cap 100 Mg PO BID 10 Days Seroquel (Quetiapine Fumarate) 100 Mg Tab 100 Mg PO HS Proventil Hfa 6.7 GM Inh (Albuterol Sulfate) 90 Mcg/Act Aer 2 Puff INH Q4-6H PRN Reported Wellbutrin SR 12 HR (Bupropion HCl) 100 Mg Tab 100 Mg PO Q12HR Review of Systems General / Constitutional: No: Fever, Chills Eyes: No: Visual changes HENT: No: Headaches Cardiovascular: No: Chest Pain or Discomfort Respiratory: No: Shortness of Breath Gastrointestinal: No: Abdominal Pain Genitourinary: Positive: Urgency, Frequency, Dysuria Musculoskeletal: No: Pain Skin: No Rash Neurologic: No: Weakness Psychiatric: No: Depression Endocrine: No: Polydipsia Hematologic/Lymphatic: No: Easy Bruising Physical Exam Narrative GENERAL: Mild distress SKIN: Focused skin assessment warm/dry. HEAD: Atraumatic. Normocephalic. EYES: Pupils equal and round. No scleral icterus. No injection or drainage. ENT: No nasal bleeding or discharge. Mucous membranes pink and moist. NECK: Trachea midline. No JVD. CARDIOVASCULAR: Regular rate and rhythm. No murmur appreciated. RESPIRATORY: No accessory muscle use. Clear to auscultation. Breath sounds equal bilaterally. GASTROINTESTINAL: Abdomen soft, non-tender, nondistended. Hepatic and splenic margins not palpable. MUSCULOSKELETAL: No obvious deformities. No clubbing. No cyanosis. No edema. NEUROLOGICAL: Awake and alert. No obvious cranial nerve deficits. Motor grossly within normal limits. Normal speech. PSYCHIATRIC: Appropriate mood and affect; insight and judgment normal. Data Data Last Documented VS Vital Signs Date Time Temp Pulse Resp B/P Pulse Ox O2 Delivery O2 Flow Rate FiO2 8/16/17 12:15 85 16 95/53 96 Room Air 12/26/16 09:52 99.8 Orders Complete Blood Count With Diff (12/26/16 10:33) Comprehensive Metabolic Panel (12/26/16 10:33) Urinalysis - C+S If Indicated (12/26/16 10:33) Iv Access Insert/Monitor (12/26/16 10:33) Sodium Chlor 0.9% 1000 Ml Inj (Ns 1000 M (12/26/16 10:33) Sodium Chloride 0.9% Flush (Ns Flush) (12/26/16 10:45) Ed Urine Pregnancytest Poc (12/26/16 10:33) Lactic Acid Sepsis Protocol (12/26/16 10:54) Blood Culture (12/26/16 10:54) Abdomen, Kub Only (12/26/16 11:03) Chest, Single Ap (12/26/16 11:03) Urine Culture (12/26/16 10:50) Ceftriaxone Inj (Rocephin Inj) (12/26/16 12:15) Labs Laboratory Tests Test 12/26/16 12/26/16 10:50 11:00 White Blood Count 8.0 TH/MM3 Red Blood Count 3.87 MIL/MM3 Hemoglobin 12.3 GM/DL Hematocrit 34.8 % Mean Corpuscular Volume 90.0 FL Mean Corpuscular Hemoglobin 31.7 PG Mean Corpuscular Hemoglobin 35.2 % Concent Red Cell Distribution Width 13.5 % Platelet Count 384 TH/MM3 Mean Platelet Volume 8.9 FL Neutrophils (%) (Auto) 63.5 % Lymphocytes (%) (Auto) 16.1 % Monocytes (%) (Auto) 19.5 % Eosinophils (%) (Auto) 0.7 % Basophils (%) (Auto) 0.2 % Neutrophils # (Auto) 5.1 TH/MM3 Lymphocytes # (Auto) 1.3 TH/MM3 Monocytes # (Auto) 1.5 TH/MM3 Eosinophils # (Auto) 0.1 TH/MM3 Basophils # (Auto) 0.0 TH/MM3 CBC Comment DIFF FINAL Differential Comment Urine Color YELLOW Urine Turbidity HAZY Urine pH 6.0 Urine Specific [place] 1.022 Urine Protein 30 mg/dL Urine Glucose (UA) NEG mg/dL Urine Ketones NEG mg/dL Urine Occult Blood SMALL Urine Nitrite NEG Urine Bilirubin NEG Urine Urobilinogen 2.0 MG/DL Urine Leukocyte Esterase LARGE Urine RBC 8 /hpf Urine WBC 78 /hpf Urine Squamous Epithelial 10 /hpf Cells Urine Calcium Oxalate Crystals FEW /hpf Urine Bacteria OCC /hpf Urine Mucus MOD /lpf Microscopic Urinalysis Comment CULTURE INDICATED Sodium Level 136 MEQ/L Potassium Level 3.8 MEQ/L Chloride Level 105 MEQ/L Carbon Dioxide Level 27.8 MEQ/L Anion Gap 3 MEQ/L Blood Urea Nitrogen 6 MG/DL Creatinine 0.49 MG/DL Estimat Glomerular Filtration 143 ML/MIN Rate Random Glucose 86 MG/DL Calcium Level 8.1 MG/DL Total Bilirubin 0.3 MG/DL Aspartate Amino Transf 22 U/L (AST/SGOT) Alanine Aminotransferase 29 U/L (ALT/SGPT) Alkaline Phosphatase 77 U/L Total Protein 7.0 GM/DL Albumin 3.4 GM/DL Lactic Acid Level 0.6 mmol/L [facility] Medical Decision Making Medical Screen Exam Complete: Yes Emergency Medical Condition: Yes Medical Record Reviewed: Yes Interpretation(s) Vital Signs Date Time Temp Pulse Resp B/P Pulse Ox O2 Delivery O2 Flow Rate FiO2 12/26/16 10:06 113 12/26/16 09:52 99.8 118 20 96/56 95 Room Air Differential Diagnosis Differential includes sepsis, pyelonephritis, cystitis, electrolyte abnormality , kidney stones Narrative Course Patient is a 36-year-old female who was recently admitted to the hospital in December for sepsis as well as pyelonephritis, and to the emergency room for evaluation of dysuria, urinary urgency frequency for the past 3 days. Patient denies any flank pain at this time, reports that she had a recent stone extraction December 13, [address] Jackson. Patient presents the emergency room hypertensive and tachycardic, sepsis labs ordered including lactic acid. UA ordered. Plan to administer IV fluids, will monitor patient on a cardiac catheterization technician. Vital Signs Date Time Temp Pulse Resp B/P Pulse Ox O2 Delivery O2 Flow Rate FiO2 12/26/16 12:15 85 16 95/53 96 Room Air 12/26/16 11:13 88 17 91/55 97 Room Air 12/26/16 10:06 113 12/26/16 09:52 99.8 118 20 96/56 95 Room Air Laboratory Tests Test 12/26/16 12/26/16 10:50 11:00 White Blood Count 8.0 TH/MM3 (4.0-11.0) Red Blood Count 3.87 MIL/MM3 (4.00-5.30) Hemoglobin 12.3 GM/DL (11.6-15.3) Hematocrit 34.8 % (35.0-46.0) Mean Corpuscular Volume 90.0 FL (80.0-100.0) Mean Corpuscular Hemoglobin 31.7 PG (27.0-34.0) Mean Corpuscular Hemoglobin 35.2 % Concent (32.0-36.0) Red Cell Distribution Width 13.5 % (11.6-17.2) Platelet Count 384 TH/MM3 (150-450) Mean Platelet Volume 8.9 FL (7.0-11.0) Neutrophils (%) (Auto) 63.5 % (16.0-70.0) Lymphocytes (%) (Auto) 16.1 % (9.0-44.0) Monocytes (%) (Auto) 19.5 % (0.0-8.0) Eosinophils (%) (Auto) 0.7 % (0.0-4.0) Basophils (%) (Auto) 0.2 % (0.0-2.0) Neutrophils # (Auto) 5.1 TH/MM3 (1.8-7.7) Lymphocytes # (Auto) 1.3 TH/MM3 (1.0-4.8) Monocytes # (Auto) 1.5 TH/MM3 (0-0.9) Eosinophils # (Auto) 0.1 TH/MM3 (0-0.4) Basophils # (Auto) 0.0 TH/MM3 (0-0.2) CBC Comment DIFF FINAL Differential Comment Urine Color YELLOW (YELLW/STRAW) Urine Turbidity HAZY (CLEAR) Urine pH 6.0 (5.0-8.5) Urine Specific Ellsworth 1.022 (1.002-1.035) Urine Protein 30 mg/dL (NEG-TRACE) Urine Glucose (UA) NEG mg/dL (NEG) Urine Ketones NEG mg/dL (NEG) Urine Occult Blood SMALL (NEG) Urine Nitrite NEG (NEG) Urine Bilirubin NEG (NEG) Urine Urobilinogen 2.0 MG/DL (LESS THAN 2.0) Urine Leukocyte Esterase LARGE (NEG) Urine RBC 8 /hpf (0-3) Urine WBC 78 /hpf (0-5) Urine Squamous Epithelial 10 /hpf (0-5) Cells Urine Calcium Oxalate Crystals FEW /hpf (NONE) Urine Bacteria OCC /hpf (NONE) Urine Mucus MOD /lpf (OCC) Microscopic Urinalysis Comment CULTURE INDICATED Sodium Level 136 MEQ/L (136-145) Potassium Level 3.8 MEQ/L (3.5-5.1) Chloride Level 105 MEQ/L (98-107) Carbon Dioxide Level 27.8 MEQ/L (21.0-32.0) Anion Gap 3 MEQ/L (5-15) Blood Urea Nitrogen 6 MG/DL (7-18) Creatinine 0.49 MG/DL (0.50-1.00) Estimat Glomerular Filtration 143 ML/MIN Rate (>89) Random Glucose 86 MG/DL (74-106) Calcium Level 8.1 MG/DL (8.5-10.1) Total Bilirubin 0.3 MG/DL (0.2-1.0) Aspartate Amino Transf 22 U/L (15-37) (AST/SGOT) Alanine Aminotransferase 29 U/L (10-53) (ALT/SGPT) Alkaline Phosphatase 77 U/L (45-117) Total Protein 7.0 GM/DL (6.4-8.2) Albumin 3.4 GM/DL (3.4-5.0) Lactic Acid Level 0.6 mmol/L (0.4-2.0) Microbiology Date/Time Procedure Status Source Growth 12/26/16 10:50 Aerobic Blood Culture Received Blood Peripheral Pending 12/26/16 10:50 Anaerobic Blood Culture Received Blood Peripheral Pending 12/26/16 10:50 Urine Culture Received Urine Clean Catch Pending 12/26/16 11:00 Aerobic Blood Culture Received Blood Peripheral Pending 12/26/16 11:00 Anaerobic Blood Culture Received Blood Peripheral Pending wbc 8.0, hemoglobin 12.3, hematocrit 34.8, platelets 384 Sodium 136, chloride 105, BUN 6, creatinine 0.49, glucose 86 lft's: wnl Lactic Acid 0.6 UA: positive for small blood, large leuk esterase, 78 white blood cells, occasional bacteria, urine culture sent. Previous records reviewed, patient was positive for Escherichia coli on December. She is sensitive to Rocephin as well as Macrobid. Plan to give her an IV dose of Rocephin, will discharge with Macrobid. Patient will follow up with cultures from today reviewed all labs and studies from today, she will follow up with cultures, she will return to ER as needed Diagnosis Primary Impression: UTI (urinary tract infection) Qualified Code: N30.01 - Acute cystitis with hematuria Patient Instructions: General Instructions Additional Instructions: Please follow-up with your primary care doctor Please follow-up with all cultures from today Return to emergency room if symptoms worsen or progress Return to ER as needed Please take all antibiotics as prescribed Med/Other Pt SpecificInfo: Prescription(s) given Scripts Phenazopyridine (Pyridium)100 Mg [id number] Mg PO Q8H PRN (DYSURIA) 3 Days Ref 0 Prov:Clara Ward DO 12/26/16 Nitrofurantoin Monohydrate Macrocrystals (Macrobid)100 Mg [id number] Mg PO BID 10 Days Ref 0 Prov:Clara Ward DO 12/26/16 Disposition: 01 DISCHARGE HOME Condition: Stable Clara Ward DO Dec 26, 2016 11:03
[2016-12-26 11:04] LABS: AUTOMATED NEUTROPHIL # 5.1 TH/MM3 (1.8-7.7); BASOPHIL % 0.2 % (0.0-2.0); EOSINOPHIL # 0.1 TH/MM3 (0-0.4); EOSINOPHIL % 0.7 % (0.0-4.0); HEMATOCRIT 34.8 % (35.0-46.0); HEMO FLAGS DIFF FINAL; LYMPH % 16.1 % (9.0-44.0); LYMPHOCYTE # 1.3 TH/MM3 (1.0-4.8); MEAN CORPUSCULAR HEMOGLOBIN 31.7 PG (27.0-34.0); MEAN CORPUSCULAR HGB CONC 35.2 % (32.0-36.0); MONO % 19.5 % (0.0-8.0); NEUT % 63.5 % (16.0-70.0); PLATELET COUNT 384 TH/MM3 (150-450); RED BLOOD COUNT 3.87 MIL/MM3 (4.00-5.30); RED CELL DISTRIBUTION WIDTH 13.5 % (11.6-17.2)
[2016-12-26 11:13] VITALS: BP 91/55; PULSE 88; RESP 17; O2SAT 97
[2016-12-26 11:14] LABS: BACTERIA, URINE OCC /hpf; BLOOD, URINE SMALL (NEG); CALCIUM OXALATE CRYSTALS,URINE FEW /hpf; COMMENT (UR) CULTURE INDICATED; CULTURE IF INDICATED CULTURE INDICATED; GLUCOSE,URINE NEG (NEG); KETONE, URINE NEG (NEG); MUCUS URINE MOD /lpf (OCC); NITRITE,URINE NEG (NEG); SQUAMOUS EPITHELIAL CELL URINE 10 /hpf (0-5); URINE COLOR YELLOW (YELLW/STRAW)
[2016-12-26 11:21] LABS: ANION GAP 3 MEQ/L (5-15); AST (GOT) 22 U/L (15-37); BICARBONATE 27.8 MEQ/L (21.0-32.0); BLOOD UREA NITROGEN 6 MG/DL (7-18); CHLORIDE 105 MEQ/L (98-107); GLOMERULAR FILTRATION RATE 143 ML/MIN (>89); POTASSIUM 3.8 MEQ/L (3.5-5.1); SODIUM (NA) 136 MEQ/L (136-145)
[2016-12-26 11:22] LABS: ALT (GPT) 29 U/L (10-53)
[2016-12-26 11:25] LABS: ALKALINE PHOSPHATASE 77 U/L (45-117); TOTAL BILIRUBIN ADULT 0.3 MG/DL (0.2-1.0)
[2016-12-26 12:15] VITALS: BP 95/53; PULSE 85; RESP 16; O2SAT 96
[2016-12-26] MEDS ORDERED: cefTRIAXone INJ 1,000 MG in SODIUM CHLORIDE 0.9% INJ 25 ML IV ONE (12:15)
[2016-12-26] MEDS ORDERED: MACR100C2 PO (12:21)
[2016-12-26] MEDS ORDERED: PHEN0.4T PO (12:21)
--- NOTE | 2016-12-26 12:22 | RADRPT ---
EXAM DATE/TIME: 12/26/2016 11:37 [facility] COMPARISON: CHEST SINGLE AP, October 02, 2015, 13:58. INDICATIONS : Short of breath with abdomen pains. MEDICAL HISTORY : Renal calculi. SURGICAL HISTORY : ENCOUNTER: Initial ACUITY: 3 days PAIN SCORE: 8/10 LOCATION: Right chest FINDINGS: A single view of the chest demonstrates the lungs to be symmetrically aerated without evidence of mas s, infiltrate or effusion. The cardiomediastinal contours are unremarkable. Osseous structures are intact. CONCLUSION: No acute disease. Brett Echevarria MD FACR on December 26, 2016 at 12:20 Board Certified Radiologist. This report was verified electronically.
--- NOTE | 2016-12-26 12:26 | RADRPT ---
EXAM DATE/TIME: 12/26/2016 11:43 [facility] COMPARISON: CT ABDOMEN & PELVIS W/O CONTRAST, December 11, 2016, 17:06. ABDOMEN KUB ONLY, December 12, 2016, 7:53. INDICATIONS : Abdomen pain, especially on back right side. MEDICAL HISTORY : Renal calculi. SURGICAL HISTORY : Csection ENCOUNTER: Initial ACUITY: 3 days PAIN SCORE: 10/10 LOCATION: Right abdomen FINDINGS: The examination demonstrates several calcified renal stones overlying the right kidney. In addition, there is a small linear density which is presumed to be outside of the patient overlying the right up per abdomen as well. The bowel gas pattern is within normal limits. There is no free air. No findings to indicate bowel ob struction are seen. The lumbar vertebral bodies are intact. CONCLUSION: 1. Multiple small stones evident overlying the right kidney. The largest is in the upper pole measure s approximately 5 mm. 2. There is a linear density overlying the right upper abdomen and presumably is external to the julissa ent. Bj Echevarria MD on December 26, 2016 at 12:06 Board Certified Radiologist. This report was verified electronically.
== END 2016-12-26 13:08 | disposition home or self-care (01) ==
LOC: NEPD 09:51
DX: N30.01 Acute cystitis with hematuria (principal); F17.210 Nicotine dependence, cigarettes, uncomplicated
CPT/HCPCS: 71010; 74000; 80053; 81001; 83605; 84703; 85025; 87040; 87086; 96361; 96365; 99284; J0696; J7030

== ENCOUNTER 2017-02-09 02:20 | Emergency (ER) | payer OTHER ==
[~2017-02-09 02:20] MED LIST changes: -CEFU1TAB20 PO; +MACR100C2 PO; -METR-1 PO; -NORC5TAB PO; +PHEN0.4T PO
[2017-02-09 02:33] VITALS: BP 115/66; PULSE 121; RESP 16; TEMP 98.7; O2SAT 96
[2017-02-09] MEDS ORDERED: ALBUTEROL SULFATE 90 MCG/ACT HFA 8 GM INHALER INH ONE (02:45)
[2017-02-09] MEDS ORDERED: RESP: ALBUTEROL 2.5 MG/IPRATROPIUM 0.5 MG NEB (SCH) NEB ONE (02:45)
[2017-02-09] MEDS ORDERED: PRED-503 PO (04:17)
[2017-02-09] MEDS ORDERED: VENTAER INH (04:17)
--- NOTE | 2017-02-09 04:17 | PD ---
HPI Chief Complaint: Respiratory Distress Time Seen by Provider: 02:24 Travel History International Travel<30 days: No Contact w/Intl Traveler<30days: No Traveled to known affect area: No History of Present Illness HPI Is a 36-year-old woman presents to the emergency department complaining of shortness of breath. Patient is a history of asthma. Symptoms been worse for the past day or so. She states she didn't have any rescue inhalers at home. No cough or cold symptoms. No chest pain. No fevers or chills. No other complaints. History Past Medical History Narrative Medical Asthma Tetanus Vaccination: > 5 Years Influenza Vaccination: No Menopausal: No : 3 Para: 2 Past Surgical History Surgical History: No Previous Surgery Social History Alcohol Use: No Tobacco Use: Yes Allergies-Medications (Allergen,Severity, Reaction): Coded Allergies: Sulfa (Sulfonamide Antibiotics) (Unverified Allergy, Severe, Rash, 02/09/17 ) Reported Meds & Prescriptions Reported Meds & Active Scripts Active Pyridium (Phenazopyridine HCl) 100 Mg Tab 100 Mg PO Q8H PRN 3 Days Macrobid (Nitrofurantoin Monoh/Nitrofur Macro) 100 Mg Cap 100 Mg PO BID 10 Days Seroquel (Quetiapine Fumarate) 100 Mg Tab 100 Mg PO HS Proventil Hfa 6.7 GM Inh (Albuterol Sulfate) 90 Mcg/Act Aer 2 Puff INH Q4-6H PRN Reported Wellbutrin SR 12 HR (Bupropion HCl) 100 Mg Tab 100 Mg PO Q12HR Review of Systems Except as stated in HPI: all other systems reviewed are Neg Physical Exam Narrative GENERAL: 36-year-old woman, no acute distress. SKIN: Focused skin assessment warm/dry. HEAD: Atraumatic. Normocephalic. EYES: Pupils equal and round. No scleral icterus. No injection or drainage. ENT: No nasal bleeding or discharge. Mucous membranes pink and moist. NECK: Trachea midline. No JVD. CARDIOVASCULAR: Regular rate and rhythm. No murmur appreciated. RESPIRATORY: No significant respiratory distress. Moderate diffuse wheezing. GASTROINTESTINAL: Abdomen soft, non-tender, nondistended. Hepatic and splenic margins not palpable. MUSCULOSKELETAL: No obvious deformities. No clubbing. No cyanosis. No edema. Data Data Last Documented VS Vital Signs Date Time Temp Pulse Resp B/P (MAP) Pulse Ox O2 Delivery O2 Flow Rate FiO2 02/09/17 02:52 96 Non-Rebreather 8.00 02/09/17 02:33 98.7 121 16 115/66 (82) Orders Orders Albuterol-Ipratropium Neb (Duoneb Neb) (02/09/17 02:45) Albuterol Hfa Inh (Proair Hfa Inh) (02/09/17 02:45) [facility] Medical Decision Making Medical Screen Exam Complete: Yes Emergency Medical Condition: Yes Differential Diagnosis Asthma, pneumonia, URI, other Narrative Course Medical decision-making 36-year-old presents emergent department with acute asthma exacerbation. Looks well. Improved with steroids and nebulizer treatments. Still a 91% on room air. Comfortable when doing walk test without any respiratory distress. Diagnosis Primary Impression: Asthma exacerbation Additional Instructions: Continue albuterol inhaler every 4-6 hours as needed until symptoms resolve. Take prednisone as prescribed. Return to the emergency department for any worsening chest pain or trouble breathing. Med/Other Pt SpecificInfo: Prescription(s) given Scripts Prednisone (Deltasone) 20 Mg Tab 60 MG PO DAILY for 5 Days, #15 TAB 0 Refills Prov: Oren Negrete MD 02/09/17 Albuterol 18 GM Inh (Ventolin Hfa 18 GM Inh) 90 Mcg/Act Aer 2 PUFF INH Q6H Y for SHORTNESS OF BREATH, #1 INHALER 0 Refills Prov: Oren Negrete MD 02/09/17 Disposition: 01 DISCHARGE HOME Condition: Stable Oren Negrete MD Feb 09, 2017 04:17
[2017-02-09 04:43] VITALS: BP 114/65
--- NOTE | 2017-02-09 08:24 | EKG ---
Date Performed: 02/09/2017 Time Performed: 02:26:29 PTAGE: 36 years EKG: SINUS TACHYCARDIA BORDERLINE RIGHT AXIS DEVIATION ABNORMAL RHYTHM ECG NO PREVIOUS TRACING DOCTOR: Roly Cruz Interpretating Date/Time 02/09/2017 08:22:55
== END 2017-02-09 05:08 | disposition home or self-care (01) ==
LOC: NEPE 02:20
DX: J45.901 Unspecified asthma with (acute) exacerbation (principal); R00.0 Tachycardia, unspecified; R94.31 Abnormal electrocardiogram [ECG] [EKG]; Z72.0 Tobacco use; Z79.899 Other long term (current) drug therapy
CPT/HCPCS: 93005; 94664; 99284

== ENCOUNTER 2017-03-23 21:24 | Emergency (ER) | payer SELFPAY ==
[~2017-03-23 21:24] MED LIST changes: +PRED-503 PO; +VENTAER INH
[2017-03-23 21:31] VITALS: BP 150/70; PULSE 108; RESP 40; TEMP 98.7; O2SAT 94
--- NOTE | 2017-03-23 21:39 | PD ---
HPI Chief Complaint: Respiratory Distress Time Seen by Provider: 21:33 Travel History International Travel<30 days: No Contact w/Intl Traveler<30days: No Traveled to known affect area: No History of Present Illness HPI So 36-year-old woman who presents emergency Department with shortness of breath. She is a history of asthma. She states she ran out of her breathing medicines about a week or so ago. She normally takes albuterol as needed. She sees a doctor for breathing couple times a year. She states she was doing well until today when she started getting significant worsening shortness of breath and asthma symptoms as well as some productive cough. No fevers or chills. Symptoms worsened throughout the day. She called EMS who gave her 2 treatments and 125 mg of IV sign Medrol with some improvement. She does smoke. She otherwise had been feeling well and healthy prior to this. History Past Medical History Narrative Medical Asthma Tobacco use Menopausal: No : 3 Para: 2 Social History Alcohol Use: No Tobacco Use: Yes Allergies-Medications (Allergen,Severity, Reaction): Coded Allergies: Sulfa (Sulfonamide Antibiotics) (Unverified Allergy, Severe, Rash, ) Reported Meds & Prescriptions Reported Meds & Active Scripts Active Ventolin Hfa 18 GM Inh (Albuterol Sulfate) 90 Mcg/Act Aer 2 Puff INH Q6H PRN Seroquel (Quetiapine Fumarate) 100 Mg Tab 100 Mg PO HS Reported Wellbutrin SR 12 HR (Bupropion HCl) 100 Mg Tab 100 Mg PO Q12HR Review of Systems Except as stated in HPI: all other systems reviewed are Neg Physical Exam Narrative GENERAL: 36-year-old woman, moderate respiratory distress, anxious appearing. SKIN: Focused skin assessment warm/dry. HEAD: Atraumatic. Normocephalic. EYES: Pupils equal and round. No scleral icterus. No injection or drainage. ENT: No nasal bleeding or discharge. Mucous membranes pink and moist. NECK: Trachea midline. No JVD. CARDIOVASCULAR: Regular rate and rhythm. No murmur appreciated. RESPIRATORY: Moderate respiratory distress. Loud wheezing throughout the posterior lung jackson. Good air movement. GASTROINTESTINAL: Abdomen soft, non-tender, nondistended. Hepatic and splenic margins not palpable. MUSCULOSKELETAL: No obvious deformities. No edema. NEUROLOGICAL: Awake and alert. No obvious cranial nerve deficits. Motor grossly within normal limits. Normal speech. Data Data Last Documented VS Vital Signs Date Time Temp Pulse Resp B/P (MAP) Pulse Ox O2 Delivery O2 Flow Rate FiO2 03/23/17 21:36 105 40 94 Aerosol Mask 8.00 03/23/17 21:31 98.7 150/70 (96) Orders Orders Influenzae A/B Antigen (03/23/17 21:33) Iv Access Insert/Monitor (03/23/17 21:33) Ecg Monitoring (03/23/17 21:33) Oximetry (03/23/17 21:33) Oxygen Administration (03/23/17 21:33) Chest, Single Ap (03/23/17 21:33) Sodium Chloride 0.9% Flush (Ns Flush) (03/23/17 21:45) Albuterol-Ipratropium Neb (Duoneb Neb) (03/23/17 21:45) Lorazepam Inj (Ativan Inj) (03/23/17 21:45) MDM Medical Decision Making Medical Screen Exam Complete: Yes Emergency Medical Condition: Yes Interpretation(s) Chest x-ray: No acute cardiopulmonary abnormalities identified. Differential Diagnosis Asthma exacerbation, pneumonia, bronchitis, other Narrative Course Medical decision making INITIAL 36-year-old woman presents to the emergency department with worsening asthma symptoms, out of medications, some productive cough. Looks anxious, moderate respiratory distress. Got steroids and breathing treatments with EMS. We'll continue breathing treatments, we'll give her a little bit of Ativan for anxiolysis, check x-ray and flu. Likely discharge falling. Of observation in the ED. Diagnosis Primary Impression: Asthma exacerbation Additional Instructions: Use albuterol every 4-6 hours until symptoms resolve. Take steroids as prescribed. Avoid tobacco. Return to the emergency department for any new or worsening symptoms. Med/Other Pt SpecificInfo: Prescription(s) given Disposition: 01 DISCHARGE HOME Condition: Stable Oren Negrete MD Mar 23, 2017 21:39
[2017-03-23] MEDS: RESP: ALBUTEROL 2.5 MG/IPRATROPIUM 0.5 MG NEB (SCH) INH (21:42)
[2017-03-23] MEDS ORDERED: SODIUM CHLORIDE 0.9% FLUSH 10 ML FLUSH IVF PRN (21:45)
[2017-03-23] MEDS ORDERED: LORazepam 2 MG/ML VIAL IV PUSH ONE (21:45)
--- NOTE | 2017-03-23 21:51 | RADRPT ---
EXAM DATE/TIME: 03/23/2017 21:35 [facility] COMPARISON: CHEST SINGLE AP, December 26, 2016, 11:37. INDICATIONS : Shortness of breath. MEDICAL HISTORY : Hypothyroidism. Asthma SURGICAL HISTORY : None. ENCOUNTER: Initial ACUITY: 1 day PAIN SCORE: 0/10 LOCATION: Bilateral chest FINDINGS: Portable AP view of the chest demonstrates a normal-sized cardiac silhouette. No effusion, consolidat ion, or pneumothorax is visualized. The bones and soft tissues demonstrate no acute abnormality. CONCLUSION: No acute cardiopulmonary abnormality is identified. Walt Lau MD on March 23, 2017 at 21:49 Board Certified Radiologist. This report was verified electronically.
[2017-03-23] MEDS ORDERED: ALBUTEROL SULFATE 90 MCG/ACT HFA 8 GM INHALER INH ONE (23:15)
[2017-03-23 23:18] VITALS: BP 103/51
== END 2017-03-23 23:45 | disposition home or self-care (01) ==
LOC: NEPE 21:24
DX: J45.901 Unspecified asthma with (acute) exacerbation (principal); Z72.0 Tobacco use; Z88.2 Allergy status to sulfonamides; Z79.899 Other long term (current) drug therapy
CPT/HCPCS: 71010; 94640; 94664; 96374; 99284; J2060

== ENCOUNTER 2017-06-23 10:02 | Emergency (ER) | payer MEDICAID ==
[~2017-06-23] VITALS: Ht 152.4 cm; Wt 43.0 kg
[~2017-06-23 10:02] MED LIST changes: -ALBU6.7H INH; -MACR100C2 PO; -PHEN0.4T PO; -PRED-503 PO
[2017-06-23 10:05] VITALS: BP 116/77; PULSE 109; RESP 21; TEMP 98.4; O2SAT 95
[2017-06-23] MEDS: RESP: ALBUTEROL 2.5 MG/IPRATROPIUM 0.5 MG NEB (SCH) INH ×2 (10:23→10:24)
[2017-06-23] MEDS ORDERED: predniSONE 20 MG TAB PO ONE (10:30)
[2017-06-23] MEDS ORDERED: VENTAER INH (10:36)
--- NOTE | 2017-06-23 10:37 | PD ---
HPI . Wheezing Chief Complaint: Respiratory Symptoms Time Seen by Provider: 10:15 Travel History International Travel<30 days: No Contact w/Intl Traveler<30days: No Traveled to known affect area: No History of Present Illness HPI This is a patient with a history of asthma who presents with the acute onset of wheezing. She states that she felt a little bit tight yesterday but that her symptoms were much worse this morning. Her MDI is empty. She denies fever or sputum production. PFSH Past Medical History Arthritis: No Asthma: Yes Autoimmune Disease: No Blood Disorders: No Anxiety: Yes Depression: Yes Heart Rhythm Problems: No High Cholesterol: No Chemotherapy: No Chest Pain: No Congestive Heart Failure: No COPD: No Cerebrovascular Accident: No Diminished Hearing: No Gastrointestinal Disorders: No GERD: No Glaucoma: No Genitourinary: Yes Hepatitis: No Hiatal Hernia: No Hypertension: No Immune Disorder: No Kidney Stones: No Musculoskeletal: No Neurologic: No Psychiatric: Yes (depression) Reproductive: No Respiratory: Yes Immunizations Current: Yes Myocardial Infarction: No Radiation Therapy: No Renal Failure: No Sickle Cell Disease: No Sleep Apnea: No Thyroid Disease: Yes (HYPO) Ulcer: No ?: Not LMP: 06/23/17 Menopausal: No : 3 Para: 2 Miscarriage: 1 : 0 Tubal Ligation: Yes Past Surgical History Abdominal Surgery: No AICD: No Cardiac Surgery: No Section: Yes (X2) Ear Surgery: No Endocrine Surgery: No Eye Surgery: No Genitourinary Surgery: Yes (URETHRA STRETCHED CHILDHOOD) Gynecologic Surgery: Yes (C SECTION, TUBAL) Joint Replacement: No Neurologic Surgery: No Oral Surgery: No Pacemaker: No Thoracic Surgery: No Other Surgery: Yes Social History Alcohol Use: Yes (OCC) Tobacco Use: Yes (1/2 PPD) Substance Use: No Allergies-Medications (Allergen,Severity, Reaction): Coded Allergies: Sulfa (Sulfonamide Antibiotics) (Unverified Allergy, Severe, Rash, 06/23/17 ) Reported Meds & Prescriptions Reported Meds & Active Scripts Active Ventolin Hfa 18 GM Inh (Albuterol Sulfate) 90 Mcg/Act Aer 2 Puff INH Q6H PRN Seroquel (Quetiapine Fumarate) 100 Mg Tab 100 Mg PO HS Reported Wellbutrin SR 12 HR (Bupropion HCl) 100 Mg Tab 100 Mg PO Q12HR Review of Systems Except as stated in HPI: all other systems reviewed are Neg General / Constitutional: No: Fever, Chills Respiratory: Positive: Cough, Shortness of Breath, Wheezing Physical Exam Narrative GENERAL: Awake and alert and in no acute distress. SKIN: Warm and dry. HEAD: Normocephalic/atraumatic. EYES: Pupils are equal. Extraocular movements are intact. NECK: Normal range of motion. CARDIOVASCULAR: Regular rate and rhythm. RESPIRATORY: Nonlabored respirations. Diffuse inspiratory and expiratory wheezing. Decreased air movement. MUSCULOSKELETAL: Atraumatic. NEUROLOGICAL: Nonfocal. PSYCHIATRIC: Appropriate mood and affect. Data Data Last Documented VS Vital Signs Date Time Temp Pulse Resp B/P (MAP) Pulse Ox O2 Delivery O2 Flow Rate FiO2 06/23/17 10:05 98.4 109 21 116/77 (90) 95 Orders Orders Albuterol-Ipratropium Neb (Duoneb Neb) (06/23/17 10:30) Prednisone (Deltasone) (06/23/17 10:30) MDM Medical Decision Making Medical Screen Exam Complete: Yes Emergency Medical Condition: Yes Differential Diagnosis My differential diagnosis includes but is not limited to asthma, COPD, bronchitis, pneumonia, CHF Narrative Course This is a patient with a history of asthma presents with wheezing. She is out of her albuterol. She does not have any signs or symptoms concerning for a lower respiratory tract infection. She will be treated here with stacked nebs and prednisone. I will discharge her with prescriptions for an inhaler. On recheck following her stacked nebs, her lungs were completely clear with much improved air movement. She will be discharged home. Diagnosis Primary Impression: Asthma exacerbation Qualified Codes: J45.21 - Mild intermittent asthma with (acute) exacerbation Patient Instructions: Asthma (DC), General Instructions Med/Other Pt SpecificInfo: Prescription(s) given Scripts Albuterol 18 GM Inh (Ventolin Hfa 18 GM Inh) 90 Mcg/Act Aer 2 PUFF INH Q6H Y for SHORTNESS OF BREATH, #1 INHALER 0 Refills Prov: Giselle Lemos MD 06/23/17 Disposition: 01 DISCHARGE HOME Condition: Stable Giselle Lemos MD Jun 23, 2017 10:37
[2017-06-24] MEDS ORDERED: PRED20 PO (10:26)
== END 2017-06-23 11:30 | disposition home or self-care (01) ==
LOC: NEPD 10:02
DX: J45.21 Mild intermittent asthma with (acute) exacerbation (principal); F41.9 Anxiety disorder, unspecified; F32.9 Major depressive disorder, single episode, unspecified; E03.9 Hypothyroidism, unspecified; F17.200 Nicotine dependence, unspecified, uncomplicated; Z79.51 Long term (current) use of inhaled steroids; Z88.2 Allergy status to sulfonamides
CPT/HCPCS: 94664; 99283; J7512

== ENCOUNTER 2017-06-24 09:35 | Emergency (ER) | payer MEDICAID ==
[~2017-06-24] VITALS: Ht 152.4 cm; Wt 45.0 kg
[2017-06-24 09:38] VITALS: BP 117/61; PULSE 87; RESP 18; TEMP 98.5; O2SAT 97
[2017-06-24] MEDS ORDERED: PRED20 PO (10:26)
[2017-06-24] MEDS ORDERED: predniSONE 20 MG TAB PO ONE (10:30)
--- NOTE | 2017-06-24 10:30 | PD ---
HPI Chief Complaint: Respiratory Symptoms Time Seen by Provider: 10:22 Travel History International Travel<30 days: No Contact w/Intl Traveler<30days: No Traveled to known affect area: No History of Present Illness HPI 36 year old female with history of asthma, tobacco use, presents for evaluation of wheezing and dyspnea. Symptoms started yesterday. She reports that her symptoms are consistent with asthma exacerbation. She was seen here yesterday for similar symptoms and received a treatment with DuoNeb and prednisone with significant improvement in her symptoms. She was given a prescription for refill of her Ventolin inhaler however she reports that she cannot afford it and thus she presents here with persistent symptoms. Denies any cough or congestion, recent travel, chest pain, fevers or chills. She has no other complaints at this time. PFSH Past Medical History Arthritis: No Asthma: Yes Autoimmune Disease: No Blood Disorders: No Anxiety: Yes Depression: Yes Heart Rhythm Problems: No High Cholesterol: No Chemotherapy: No Chest Pain: No Congestive Heart Failure: No COPD: No Cerebrovascular Accident: No Diminished Hearing: No Gastrointestinal Disorders: No GERD: No Glaucoma: No Genitourinary: Yes Hepatitis: No Hiatal Hernia: No Hypertension: No Immune Disorder: No Kidney Stones: No Musculoskeletal: No Neurologic: No Psychiatric: Yes (depression) Reproductive: No Respiratory: Yes (ASTHMA ) Immunizations Current: Yes Myocardial Infarction: No Radiation Therapy: No Renal Failure: No Sickle Cell Disease: No Sleep Apnea: No Thyroid Disease: Yes (HYPO) Ulcer: No ?: Not Menopausal: No : 3 Para: 2 Miscarriage: 1 : 0 Tubal Ligation: Yes Past Surgical History Abdominal Surgery: No AICD: No Cardiac Surgery: No Section: Yes (X2) Ear Surgery: No Endocrine Surgery: No Eye Surgery: No Genitourinary Surgery: Yes (URETHRA STRETCHED CHILDHOOD) Gynecologic Surgery: Yes (C SECTION, TUBAL) Joint Replacement: No Neurologic Surgery: No Oral Surgery: No Pacemaker: No Thoracic Surgery: No Other Surgery: Yes Social History Alcohol Use: Yes (OCC) Tobacco Use: Yes (1/2 PPD) Substance Use: No Allergies-Medications (Allergen,Severity, Reaction): Coded Allergies: Sulfa (Sulfonamide Antibiotics) (Unverified Allergy, Severe, Rash, 06/23/17 ) Reported Meds & Prescriptions Reported Meds & Active Scripts Active Prednisone 20 Mg Tab 20 Mg PO BID 3 Days Ventolin Hfa 18 GM Inh (Albuterol Sulfate) 90 Mcg/Act Aer 2 Puff INH Q6H PRN Seroquel (Quetiapine Fumarate) 100 Mg Tab 100 Mg PO HS Reported Wellbutrin SR 12 HR (Bupropion HCl) 100 Mg Tab 100 Mg PO Q12HR Review of Systems General / Constitutional: No: Fever, Chills HENT: No: Headaches Cardiovascular: No: Chest Pain or Discomfort Respiratory: Positive: Shortness of Breath, Wheezing, No: Cough Gastrointestinal: No: Abdominal Pain Musculoskeletal: No: Myalgias Physical Exam Narrative GENERAL: Well-nourished female in no acute distress SKIN: Warm and dry. HEAD: Atraumatic. Normocephalic. EYES: Pupils equal and round. No scleral icterus. No injection or drainage. ENT: No nasal bleeding or discharge. Mucous membranes pink and moist. NECK: Trachea midline. No JVD. CARDIOVASCULAR: Regular rate and rhythm. No murmur appreciated. RESPIRATORY: No accessory muscle use. Diffuse inspiratory next door wheezing bilaterally. Speaking in complete and clear sentences. No tachypnea. GASTROINTESTINAL: Abdomen soft, non-tender, nondistended. Hepatic and splenic margins not palpable. MUSCULOSKELETAL: No obvious deformities. No clubbing. No cyanosis. No edema. Data Data Last Documented VS Vital Signs Date Time Temp Pulse Resp B/P (MAP) Pulse Ox O2 Delivery O2 Flow Rate FiO2 06/24/17 09:38 98.5 87 18 117/61 (79) 97 Orders Orders Albuterol-Ipratropium Neb (Duoneb Neb) (06/24/17 10:30) Prednisone (Deltasone) (06/24/17 10:30) [facility] Medical Decision Making Medical Screen Exam Complete: Yes Emergency Medical Condition: Yes Medical Record Reviewed: Yes Differential Diagnosis Asthma exacerbation, pneumothorax, pulmonary embolism, reactive airway disease Narrative Course Her examination and history are consistent with asthma exacerbation. The patient will be treated here with DuoNeb treatment as well as a dose of 40 mg prednisone. The patient will be given a coupon for good or accident in order to obtain the prescription for Ventolin that she received yesterday. She will be given a prescription for 3 additional days of prednisone treatment. Diagnosis Primary Impression: Asthma exacerbation Additional Instructions: Medications prescribed. Avoid tobacco products. Follow-up with primary care physician and return for any emergent medical conditions. Med/Other Pt SpecificInfo: Prescription(s) given Scripts Prednisone (Prednisone) 20 Mg Tab 20 MG PO BID for 3 Days, #6 TAB 0 Refills Prov: Mert Marrero MD 06/24/17 Disposition: 01 DISCHARGE HOME Condition: Stable Srikanth Lieberman Jun 24, 2017 10:30
[2017-06-24] MEDS: RESP: ALBUTEROL 2.5 MG/IPRATROPIUM 0.5 MG NEB (SCH) INH ×2 (11:25→11:26)
== END 2017-06-24 12:17 | disposition home or self-care (01) ==
LOC: NEPK 09:35
DX: J45.901 Unspecified asthma with (acute) exacerbation (principal); E03.9 Hypothyroidism, unspecified; F32.9 Major depressive disorder, single episode, unspecified; F41.9 Anxiety disorder, unspecified; F17.210 Nicotine dependence, cigarettes, uncomplicated; Z88.2 Allergy status to sulfonamides; Z79.899 Other long term (current) drug therapy
CPT/HCPCS: 94640; 94664; 99283; J7512